=== PATIENT | male | born 1980 | race Caucasian/White ===

== ENCOUNTER 2019-09-21 14:33 | Outpatient (CLI) | payer OTHER, SELFPAY ==
--- NOTE | ~2019-09-21 | US_ITS ---
EXAMINATION: US right upper quadrant EXAM DATE: 09/21/2019 15:04 INDICATION: Right upper quadrant pain. Maurer's sign. TECHNIQUE: Multiple grayscale and Doppler images of the abdomen right upper quadrant were obtained (b y a technologist who performed the scan) and subsequently reviewed. There is no prior study for lazaro hanley. FINDINGS: The pancreatic head and body are normal in appearance. The pancreatic tail is not visualized. The l iver has normal echogenicity and contour. There is a 1 cm cyst anteriorly. There is no evidence of intrahepatic biliary duct dilation. Portal venous flow was seen in the hepatopedal, normal direction and has normal Doppler waveform. No right-sided hydronephrosis. Common bile duct measures 4 mm, which is normal. The gallbladder wall is normal in thickness, with ex pected amount of distention. No sonographic evidence of pericholecystic fluid. There is no cholelit hiases. Technologist performing exam reports patient did not demonstrate sonographic Maurer's sign. Please note that this sign is less reliable in patients who have received pain medication. IMPRESSION: Unremarkable abdominal ultrasound exam. Reviewed, dictated and finalized at location B. O NETWORK ENGINEER
[2019-09-21 15:42] LABS: Basophils Percent Auto 0.4 % (0.2-1.2); Eosinophils Absolute Auto 0.1 K/mm3 (0-0.3); Eosinophils Percent Auto 1.3 % (0-4.4); Hematocrit 46.4 % (42.0-52.0); Hemoglobin 15.6 g/dL (14.0-18.0); Immature Granulocyte Absolute 0.02 K/mm3 (0.00-0.031); Immature Granulocyte Percent A 0.2 % (0-0.5); Lymphocytes Absolute Auto 2.15 K/mm3 (0.9-3.2); Lymphocytes Percent Auto 25.1 % (18.3-44.2); Mean Corpuscular HGB Conc 33.6 g/dl (32-36); Mean Corpuscular Hemoglobin 29.4 pg (26-34); Mean Corpuscular Volume 87.4 fl (80-100); Mean Platelet Volume 10.3 fl (7.4-10.4); Monocytes Absolute Auto 0.7 K/mm3 (0.1-0.6); Monocytes Percent Auto 8.2 % (2.6-8.5); Neutrophils Absolute Auto 5.6 K/mm3 (1.3-6.7); Neutrophils Percent Auto 64.8 % (45.5-73.1); Platelet Count Result 273 k/mm3 (150-375); Red Blood Count 5.31 M/mm3 (4.6-6.20); Red Cell Distribution Width 12.9 % (11.5-14.5); White Blood Count 8.6 K/mm3 (4.5-10.0)
[2019-09-21 15:52] LABS: Alanine Aminotransferase 27 U/L (4-50); Albumin Level 4.2 g/dL (3.5-5.1); Alkaline Phosphatase 61 U/L (38-126); Amylase 42 U/L (30-110); Aspartate Amino Transferase 24 U/L (17-59); Bilirubin,Total 0.8 mg/dL (0.2-1.3); Blood Urea Nitrogen 11 mg/dL (9-20); Carbon Dioxide 25 mmol/L (22-30); Chloride 100 mmol/L (98-107); Estimated Glomerular Filt Rate > 60; Glucose 85 mg/dL (75-110); Lipase 90 U/L (23-300); Potassium 4.4 mmol/L (3.4-5.0); Sodium 135 mmol/L (137-145)
== END 2019-09-21 14:34 | disposition home or self-care (01) ==
PROVIDERS: PCP Family Medicine; Visit Provider Physician Assistant
DX: R10.11 Right upper quadrant pain (principal)
CPT/HCPCS: 36415; 76705; 80053; 82150; 83690; 85025

== ENCOUNTER 2019-09-25 14:50 | Outpatient (CLI) | payer OTHER, SELFPAY ==
--- NOTE | ~2019-09-25 | NM_ITS ---
EXAMINATION: NM hepatobiliary w pharm DATE: 09/25/2019 17:52 INDICATION: Right upper quadrant abdominal pain COMPARISON: Right upper quadrant ultrasound dated 09/21/2019 TECHNIQUE: 4.5 mCi Tc-99m mebrofenin (Choletec) was administered intravenously. Scintigraphic images of the abdomen were obtained for one hour. 3 mcg sincalide (Kinevac) was administered by slow intrav enous infusion, and imaging was continued for 30 minutes. Gallbladder ejection fraction was calculate d by the technologist. FINDINGS: There is normal clearance of radiotracer from the blood pool. There is homogeneous tracer uptake by t he liver. Activity progresses to the gallbladder and bowel. The gallbladder ejection fraction (GBEF) is 77% (normal 10-90%, but most patient with gallbladder dysfunction have GBEF < 35% which does over lap with the normal range). IMPRESSION: 1. Normal hepatobiliary scan. Reviewed, dictated and finalized at location A. ITE PROVIDER
== END 2019-09-25 14:51 | disposition home or self-care (01) ==
LOC: ANHIMG 14:57
PROVIDERS: PCP Family Medicine; Visit Provider Physician Assistant
DX: R10.11 Right upper quadrant pain (principal)
CPT/HCPCS: 78227; A9537; J2805

== ENCOUNTER 2019-12-14 07:46 | Emergency (ER) | payer OTHER, SELFPAY ==
--- NOTE | ~2019-12-14 | XR_ITS ---
EXAMINATION: XR lumbar spine min 4V DATE: 12/14/2019 08:11 INDICATION: Pain after fall TECHNIQUE: Anteroposterior, lateral, and bilateral oblique views of the lumbar spine, and cone-down l ateral view of the lumbosacral junction were obtained. COMPARISON: None. FINDINGS: There is no fracture, dislocation, or subluxation. The vertebral body heights, alignment, a nd intervertebral disc spaces are normal. The paravertebral soft tissues are unremarkable. IMPRESSION: 1. No acute osseous abnormality. Reviewed, dictated and finalized at location A.
[2019-12-14 07:50] VITALS: BP 154/81; PULSE 66; RESP 18; TEMP 36.7; O2SAT 100
--- NOTE | 2019-12-14 07:52 | ED.GENADULT ---
HPI - General Adult General Chief complaint: Fall Stated complaint: Low back pain Time Seen by Provider: 12/14/19 07:51 History of Present Illness HPI narrative: Patient is a 39-year-old male who presents ER with low back pain. Patient was at work 3 days ago wrapping a palate walking backwards when he tripped and fell backwards landing on his buttock and hand. He initially had left wrist pain which is persisted without swelling or numbness or tingling. But he has developed worsening low back pain since his fall. No lower extremity numbness or weakness, no saddle anesthesia, no difficulty with urination or defecation. Sx are worsened by persistent sitting. No alleviating factors. Related Data Home Medications Medication Instructions Recorded Confirmed amlodipine 12/14/19 famotidine 12/14/19 lisinopril 12/14/19 Allergies Allergy/AdvReac Type Severity Reaction Status Date / Time No Known Allergies Allergy Verified 12/14/19 08:00 Review of Systems Review of Systems: All systems reviewed & are unremarkable except as noted in HPI and below Constitutional: Constitutional: Denies chills, Denies fever(s) and Denies weakness Respiratory: Respiratory: Denies cough and Denies dyspnea Musculoskeletal: Musculoskeletal: Reports back pain and Denies muscle cramps Comments: Left wrist pain Neurologic: Denies syncope, Denies focal weakness and Denies numbness PMFSH Past Medical History Medical History (Updated 12/14/19 @ 08:55 by Logan Fallon MD) Essential hypertension GERD (gastroesophageal reflux disease) History of diverticulosis Obstructive sleep apnea on CPAP Surgical History Surgical History (Updated 12/14/19 @ 08:49 by Logan Fallon MD) H/O inguinal hernia repair Family History Family History (Updated 03/29/14 @ 09:38 by DOCTOR UNKNOWN) Father Acute myocardial infarction Social History Social History Smoking status: Never smoker Alcohol intake: never Gender identity (if verbalized by the patient): Male Exam Narrative: Exam Narrative: GENERAL: Well-appearing, well-nourished, and in no acute distress. HEAD: Normocephalic, atraumatic. ENT: Mucous membranes moist. CHEST: Clear to auscultation. No respiratory distress. HEART: Regular rate and rhythm. Normal peripheral pulses. EXTREMITIES: Focused exam left wrist shows no swelling or redness, full range of motion present, no point tenderness. Back: No midline tenderness of thoracic or lumbar spine. There is mild tenderness to the right SI region without evidence of bruising or abrasion. SKIN: Warm, dry, no rash. NEURO: Alert and oriented x3. Course Course Emergency Course: Minimal improvement with Toradol. Informed of results. Discharge home with supportive care. Vital Signs Vital signs: Vital Signs Temperature 98.1 F 12/14/19 07:50 Pulse Rate 66 12/14/19 07:50 Respiratory Rate 18 12/14/19 07:50 Blood Pressure 154/81 H 12/14/19 07:50 Pulse Oximetry 100 12/14/19 07:50 Temperature 98.1 F 12/14/19 07:50 Pulse Rate 66 12/14/19 07:50 Respiratory Rate 18 12/14/19 07:50 Blood Pressure 154/81 H 12/14/19 07:50 Pulse Oximetry 100 12/14/19 07:50 Medical Decision Making Vital Signs Vital Signs: Vital Signs Temperature 98.1 F 12/14/19 07:50 Pulse Rate 66 12/14/19 07:50 Respiratory Rate 18 12/14/19 07:50 Blood Pressure 154/81 H 12/14/19 07:50 Pulse Oximetry 100 12/14/19 07:50 Temperature 98.1 F 12/14/19 07:50 Pulse Rate 66 12/14/19 07:50 Respiratory Rate 18 12/14/19 07:50 Blood Pressure 154/81 H 12/14/19 07:50 Pulse Oximetry 100 12/14/19 07:50 Imaging Data Radiologist's impression: ITS Impressions Lumbar Spine X-Ray 12/14/19 08:19 IMPRESSION: 1. No acute osseous abnormality. Discharge Plan Discharge Clinical Impression: Acute low back pain Qualifiers: Back pain laterality: right Sciatica presence: without sciatica
[2019-12-14] MEDS: KETOROLAC (*BKC) 60 MG/2 ML VIAL IM (08:05)
== END 2019-12-14 09:05 | disposition home or self-care (01) ==
PROVIDERS: Emergency Provider Emergency Medicine; PCP Family Medicine
DX: M54.5 Low back pain (principal); I10 Essential (primary) hypertension; K21.9 Gastro-esophageal reflux disease without esophagitis; G47.33 Obstructive sleep apnea (adult) (pediatric)
CPT/HCPCS: 72110; 96372; 99283; J1885

== ENCOUNTER 2020-08-09 14:45 | Emergency (ER) | payer OTHER, SELFPAY ==
[2020-08-09 14:53] VITALS: BP 155/82; PULSE 78; RESP 20; TEMP 36.6; O2SAT 98
--- NOTE | 2020-08-09 15:30 | ED.ABDPAIN ---
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 Patient states he has 1/2-week history of left sided back pain that is mild, worse with motion [therefore not colicky], better at rest. No frequency/urgency/dysuria, abdominal pain, blood, fever-but a screening [infrared]temperature today was 100. He did have associated emesis x1 yesterday only; he has no stool changes [darker/founder and president], bowel changes. He has had a prior Covid test earlier in the month after Thanksgiving exposure and quarantine; no cough, S OB, wheezing, CP, loss of taste or smell. The patient had a prior CT scan [2018] showing diverticulitis, treated without surgery; he had a prior noncontributory ultrasound and biliary scan [2019] for pain from GERD. [id number] dip urinalysis is noncontributory except for trace hematuria. Discussed possible causes [urologic, gastrointestinal, mechanical back, etc.] and patient declines same day referral to hospital for further testing Related Data Allergies Allergy/AdvReac Type Severity Reaction Status Date / Time No Known Allergies Allergy Verified 08/09/20 15:12 Review of Systems Review of Systems: Narrative: General/Constitutional: No weight loss,fever Eyes: N0: Redness,discharge Ears/Nose/Throat: No: Epistaxis,ear discharge Respiratory: Denies: Hemoptysis Gastrointestinal: No Vomiting today?only yesterday, no Bleeding-rectal Skin: No Lumps, eruption Neurologic: No Focal Weakness,Sz Hematologic: Denies: Petechiae/Purpura Psychiatric: No: Suicida ideationl All Other Systems: Reviewed and Negative [facility] Past Medical History Medical History (Updated 08/10/20 @ 00:00 by Background Daemon) Essential hypertension GERD (gastroesophageal reflux disease) History of diverticulosis Obstructive sleep apnea on CPAP Surgical History Surgical History (Updated 12/14/19 @ 08:49 by Logan Fallon MD) H/O inguinal hernia repair Family History Family History (Updated 03/29/14 @ 09:38 by DOCTOR UNKNOWN) Father Acute myocardial infarction Social History Social History (Updated 08/05/20 @ 09:01 by Keerthi Mai) Smoking status: Never smoker Second hand tobacco smoke exposure: No Alcohol intake: never Substance use: never Substance use type: does not use Gender identity (if verbalized by the patient): Male Comments At time of signature, agree with nursing past medical, surgical, social and family history. There is no relevant family history pertinent to the presenting complaint Exam Narrative: Exam Narrative: General Appearance: Obese/well nourished, Conjunctiva clear Mouth/Throat: Normal appearing, Normal lips, Supple Respiratory: Airway patent, No respiratory distress Abdomen: Soft, mildly tender left flank and LLQ, No massess, No organomegaly,no rebound/ surgical signs), Musculoskeletal: Full ROM Skin: Warm, Dry Neurological: A&O x3, Normal affect Course Vital Signs Vital signs: Vital Signs Temperature 97.8 F 08/09/20 14:53 Pulse Rate 78 08/09/20 14:53 Respiratory Rate 20 08/09/20 14:53 Blood Pressure 155/82 H 08/09/20 14:53 Pulse Oximetry 98 08/09/20 14:53 Temperature 97.8 F 08/09/20 14:53 Pulse Rate 78 08/09/20 14:53 Respiratory Rate 20 08/09/20 14:53 Blood Pressure 155/82 H 08/09/20 14:53 Pulse Oximetry 98 08/09/20 14:53 MDM - Abdominal Pain Lab Data Labs: Lab Results 08/09/20 Range/Units 15:09 C.trachomatis RNA (TMA) Not detected (Not Detected) N.gonorrhoeae RNA (TMA) Not detected (Not Detected) T. vaginalis Amp RNA Pending Urine Glucose Negative Reference
== END 2020-08-09 15:44 | disposition home or self-care (01) ==
PROVIDERS: Emergency Provider Emergency Medicine; PCP Family Medicine
DX: R10.9 Unspecified abdominal pain (principal); I10 Essential (primary) hypertension; K21.9 Gastro-esophageal reflux disease without esophagitis; G47.33 Obstructive sleep apnea (adult) (pediatric)
CPT/HCPCS: 81003; 87086; 87491; 87591; 87661; 99213; G0463

== ENCOUNTER 2020-09-20 07:02 | Outpatient (NON) | payer OTHER, SELFPAY ==
[2020-09-20 19:17] LABS: SARS-CoV-2 RNA PCR Negative
== END 2020-09-20 07:03 ==
PROVIDERS: Family Provider Family Medicine; PCP Family Medicine; Visit Provider Physician Assistant
DX: R05 Cough (principal); Z20.822 Contact with and (suspected) exposure to COVID-19
CPT/HCPCS: C9803; U0003; U0005

== ENCOUNTER 2020-10-29 09:58 | Outpatient (CLI) | payer OTHER, SELFPAY ==
--- NOTE | ~2020-10-29 | XR_ITS ---
EXAMINATION: XR lumbar spine 2-3V EXAM DATE: 10/29/2020 10:19 INDICATION: M54.5 - Low back pain. Pt fell on his back at work x 1 year ago and is having throbbing l ow-back pain x 1 week with occasional spasms. No recent injury. No surgery. TECHNIQUE: Lumber spine frontal, lateral, lateral L5-S1 projections for interpretation. Comparison is made to prior examination from 12/13/2019. FINDINGS: The vertebral bodies are aligned in the AP dimension. Vertebral body and disc heights are well-maintained. There are no acute fractures identified. There is mild to moderate lumbar facet arth ropathy. Sacrum, sacroiliac joints, sacral arcuate lines are intact. Paraspinal soft tissue is unrema rkable. IMPRESSION: Mild to moderate lumbar facet arthropathy. Reviewed, dictated and finalized at location B. ACT LENS MOLDER
== END 2020-10-29 09:59 ==
PROVIDERS: PCP Family Medicine; Visit Provider Nurse Practitioner Family
DX: M47.816 Spondylosis without myelopathy or radiculopathy, lumbar region (principal)
CPT/HCPCS: 72100

== ENCOUNTER 2021-08-09 15:04 | Emergency (ER) | payer OTHER, SELFPAY ==
--- NOTE | 2021-08-09 15:08 | ED.CHESTPAIN ---
HPI - Chest Pain General Chief Complaint: Chest Pain Stated Complaint: chest pain Time Seen by Provider: 08/09/21 15:08 Source: patient, family (), RN notes reviewed and old records reviewed Mode of arrival: ambulatory Limitations: no limitations History of Present Illness HPI narrative: 41-year-old male presents to the [facility] with complaints of left-sided chest pain, heaviness that woke him up out of his sleep last night. Patient states the pain was 10 out of 10, took his acid reflux medication. Patient denies it helping. Denies being sweaty or shortness of breath denies nausea or vomiting. Describes it as a chest tightness or heaviness. Risk factors include morbid obesity, hypertension, dad at 45 years old of a massive heart attack. MD complaint: chest pain, chest heaviness and chest discomfort (Left-sided) Related Data Allergies Allergy/AdvReac Type Severity Reaction Status Date / Time No Known Allergies Allergy Verified 08/04/21 16:18 Review of Systems Review of Systems: All systems reviewed & are unremarkable except as noted in HPI and below Constitutional: Constitutional: Reports no additional constitutional complaints, Denies chills, Denies fatigue, Denies fever(s) and Denies weakness Eyes: Eyes: Reports no additional eye complaints ENT: Reports system reviewed and no additional complaints, except as documented Cardiovascular: Cardiovascular: Reports as per HPI, Reports chest pain, Reports chest pain at rest, Reports chest pain with activity, Reports radiating jaw, neck or arm pain and Denies dyspnea Respiratory: Respiratory: Reports no additional respiratory complaints, Denies chest congestion, Denies cough, Denies dyspnea and Denies wheezing Gastrointestinal: Gastrointestinal: Reports no additional gastrointestinal complaints, Denies abdominal pain, Denies nausea and Denies vomiting Musculoskeletal: Musculoskeletal: Reports no additional musculoskeletal complaints Integumentary/Breasts: Skin/Breast: Reports system reviewed and no additional complaints, except as docu Neurologic: Reports system reviewed and no additional complaints, except as documented Psychiatric: Psychiatric: Reports no additional psychiatric complaints Allergic/Immunologic: Allergic/Immunologic: Reports no additional allergic/immunologic complaints PMFSH Past Medical History Medical History Essential hypertension GERD (gastroesophageal reflux disease) History of diverticulosis Obstructive sleep apnea on CPAP Surgical History Surgical History H/O inguinal hernia repair Family History Family History (Updated 08/09/21 @ 15:27 by Katelin Arriaga) Father , Age 45 Acute myocardial infarction, Onset Age: 45 Social History Social History Smoking status: Never smoker Second hand tobacco smoke exposure: No Alcohol intake: never Substance use: never Substance use type: does not use Gender identity (if verbalized by the patient): Male Comments At the time of my signature, I reviewed and agree with the nursing past medical, surgical, social, and family history. There is no relevant family history pertinent to the patient complaint. Exam Const: General: healthy appearing, no acute distress and alert Nutritional Appearance: well nourished and obese morbidly obese Orientation/consciousness: patient oriented x3 Limitations: no limitations HENMT: Head: normal to inspection Ears: external ears normal Eyes: Conjunctivae: conjunctivae normal Pupils: Equal, round and reactive pupils present Neck: Neck: normal visual inspection, no lymphadenopathy and no meningeal signs Chest: Chest palpation & inspection: normal inspection of the chest Resp: Effort & Inspection: normal respiratory effort and no use of accessory muscles Auscultation: clear to ausculta
[2021-08-09] MEDS: ASPIRIN 81 MG CHEWABLE TABLET 324 MG PO (15:15)
[2021-08-09 15:34] VITALS: BP 149/72; PULSE 81; RESP 18; TEMP 36.6; O2SAT 98
== END 2021-08-09 15:27 | disposition short-term general hospital (02) ==
PROVIDERS: Emergency Provider Nurse Practitioner; PCP Family Medicine
DX: R07.89 Other chest pain (principal); I10 Essential (primary) hypertension; K21.9 Gastro-esophageal reflux disease without esophagitis; G47.33 Obstructive sleep apnea (adult) (pediatric); E66.01 Morbid (severe) obesity due to excess calories; Z68.42 Body mass index [BMI] 45.0-49.9, adult
CPT/HCPCS: 99215; A9270; G0463

== ENCOUNTER 2021-08-09 15:44 | Emergency (ER) | payer OTHER, SELFPAY ==
[2021-08-09] VITALS (7 sets, daily range): BP systolic 121–148; BP diastolic 55–69; PULSE 69–80; RESP 15–20; TEMP 36.2; O2SAT 95–100
--- NOTE | ~2021-08-09 | XR_ITS ---
EXAMINATION: XR chest 2V 08/09/2021 16:05 INDICATION: Sternal chest pain. PROCEDURE: 2 view chest COMPARISON: No prior studies for comparison. FINDINGS: The lungs are clear. The cardiomediastinal silhouette is within normal limits. There are no pleural effusions. There is no pneumothorax suspected. IMPRESSION: 1: NO ACUTE CARDIOPULMONARY DISEASE. Reviewed, dictated and finalized at location A. ET RUNNER
--- NOTE | 2021-08-09 15:17 | ECG_ITS ---
Measurements Intervals [place] Rate: 83 P: 33 VA: 146 QRS: 31 QRSD: 90 T: 33 QT: 346 QTc: 408 Interpretive Statements SINUS RHYTHM BASELINE ARTIFACT- I, II, III, AVR, AVL, AVF, V1-V2, V4-V6 NORMAL ECG Electronically Signed On 08-12-2021 8:31:19 [employer] by Randy Jansen D.O.
--- NOTE | 2021-08-09 15:47 | ECG_ITS ---
Measurements Intervals [place] Rate: 78 P: 19 [place]: 149 QRS: 12 QRSD: 100 T: 31 QT: 361 QTc: 414 Interpretive Statements SINUS RHYTHM NORMAL ECG Electronically Signed On 08-09-2021 17:07:25 TECHNICAL SPECIALIST CYTOLOGY by Randy Jansen D.O.
[2021-08-09 16:05] LABS: Basophils Percent Auto 0.3 % (0.2-1.2); Eosinophils Absolute Auto 0.2 K/mm3 (0-0.3); Eosinophils Percent Auto 1.5 % (0-4.4); Hematocrit 45.3 % (42.0-52.0); Hemoglobin 14.8 g/dL (14.0-18.0); Immature Granulocyte Absolute 0.03 K/mm3 (0.00-0.031); Immature Granulocyte Percent A 0.3 % (0-0.5); Lymphocytes Absolute Auto 2.37 K/mm3 (0.9-3.2); Mean Corpuscular HGB Conc 32.7 g/dl (32-36); Mean Corpuscular Hemoglobin 28.6 pg (26-34); Mean Corpuscular Volume 87.6 fl (80-100); Mean Platelet Volume 10.4 fl (7.4-10.4); Neutrophils Absolute Auto 7.2 K/mm3 (1.3-6.7); Neutrophils Percent Auto 66.9 % (45.5-73.1); Platelet Count Result 237 k/mm3 (150-375); Red Blood Count 5.17 M/mm3 (4.6-6.20); Red Cell Distribution Width 13.4 % (11.5-14.5); White Blood Count 10.8 K/mm3 (4.5-10.0)
[2021-08-09 16:14] LABS: Alanine Aminotransferase 28 U/L (4-50); Alkaline Phosphatase 56 U/L (38-126); Anion Gap 5 mmol/L (8-16); Aspartate Amino Transferase 25 U/L (17-59); Bilirubin,Total 0.5 mg/dL (0.2-1.3); Blood Urea Nitrogen 12 mg/dL (9-20); Calcium 8.6 mg/dL (8.4-10.2); Carbon Dioxide 25 mmol/L (22-30); Chloride 103 mmol/L (98-107); Estimated CRCL calculation 121 ml/min; Estimated Glomerular Filt Rate > 60; Glucose 104 mg/dL (65-110); INR 0.9; Lipase 128 U/L (23-300); Potassium 4.2 mmol/L (3.4-5.0); Prothrombin Time 11.7 Seconds (11.1-14.7); Sodium 133 mmol/L (137-145)
[2021-08-09 16:15] LABS: Partial Thromboplastin Time 24.8 SECONDS (22.3-36.8)
[2021-08-09 16:27] LABS: Troponin I < 0.012 ng/mL (0.000-0.034)
[2021-08-09 19:54] LABS: Troponin I < 0.012 ng/mL (0.000-0.034)
[2021-08-09] MEDS: BELLADONNA ALK/PHENOB ELIX 10 ML, MAG HYDROX/ALUMINUM HYD/SIMETH 30 ML, LIDOCAINE HCL 2... PO (20:14)
--- NOTE | 2021-08-09 20:44 | ED.GENADULT ---
HPI - General Adult General Chief complaint: Chest Pain Stated complaint: Chest Pain Time Seen by Provider: 08/09/21 19:52 History of Present Illness HPI narrative: Patient is a 41-year-old gentleman who presents the emergency department with chief complaint of chest discomfort. Patient reports he has history of reflux and has history of hypertension. The patient states last night he had an episode where he had a burning sensation in the back of his throat and reports he had some fullness and tightness in his chest that has been subsequently become sharp. Patient reports no diarrhea denies abdominal pain or epigastric pain. Related Data Allergies Allergy/AdvReac Type Severity Reaction Status Date / Time No Known Allergies Allergy Verified 08/09/21 20:05 Review of Systems Review of Systems: A 10 system review of systems was completed on the patient and is negative except for what is stated in the HPI. Nursing and ancillary documentation was reviewed. [facility] Past Medical History Medical History Essential hypertension GERD (gastroesophageal reflux disease) History of diverticulosis Obstructive sleep apnea on CPAP Surgical History Surgical History H/O inguinal hernia repair Family History Family History Father , Age 45 Acute myocardial infarction, Onset Age: 45 Social History Social History Smoking status: Never smoker Second hand tobacco smoke exposure: No Alcohol intake: never Substance use: never Substance use type: does not use Gender identity (if verbalized by the patient): Male Exam Narrative: GENERAL: Well-appearing, well-nourished, and in no acute distress. HEAD: Normocephalic, atraumatic. EYES: PERRLA and EOMI. ENT: Nares clear, no rhinorrhea or epistaxis. Mucous membranes moist. NECK: Supple. CHEST: Clear to auscultation. No respiratory distress. HEART: Regular rate and rhythm. No murmur heard. Normal peripheral pulses. ABDOMEN: Soft, nontender, nondistended, normal active bowel sounds. EXTREMITIES: Normal range of motion. No edema. SKIN: Warm, dry, no rash. NEURO: No focal deficits. Alert and oriented x3. PSYCH: Normal mood and affect. Course Course Emergency Course: EKG is sinus rhythm rate of [address] elevation or ST depression Vital Signs Vital signs: Vital Signs Temperature 36.2 C L 08/09/21 15:48 Pulse Rate 80 08/09/21 15:48 Respiratory Rate 18 08/09/21 15:48 Blood Pressure 148/69 H 08/09/21 15:48 Pulse Oximetry 97 08/09/21 15:48 Temperature 36.2 C L 08/09/21 15:48 Pulse Rate 75 08/09/21 19:56 Respiratory Rate 17 08/09/21 19:56 Blood Pressure 130/55 L 08/09/21 19:56 Pulse Oximetry 99 08/09/21 20:05 Medical Decision Making Vital Signs Vital Signs: Vital Signs Temperature 36.2 C L 08/09/21 15:48 Pulse Rate 80 08/09/21 15:48 Respiratory Rate 18 08/09/21 15:48 Blood Pressure 148/69 H 08/09/21 15:48 Pulse Oximetry 97 08/09/21 15:48 Temperature 36.2 C L 08/09/21 15:48 Pulse Rate 75 08/09/21 19:56 Respiratory Rate 17 08/09/21 19:56 Blood Pressure 130/55 L 08/09/21 19:56 Pulse Oximetry 99 08/09/21 20:05 Lab Data Result diagrams: 08/09/21 15:58 08/09/21 15:58 Labs: Lab Results 08/09/21 08/09/21 08/09/21 Range/Units 15:58 15:58 15:58 WBC 10.8 H (4.5-10.0) K/mm3 RBC 5.17 (4.6-6.20) M/mm3 Hgb 14.8 (14.0-18.0) g/dL Hct 45.3 (42.0-52.0) % MCV 87.6 (80-100) fl MCH 28.6 (26-34) pg MCHC 32.7 (32-36) g/dl RDW 13.4 (11.5-14.5) % Plt Count 237 (150-375) k/mm3 MPV 10.4 (7.4-10.4) fl Immature Gran % (Auto) 0.3 (0-0.5) % Neut % (Auto) 66.9 (45.5-73.1) % Lymph
== END 2021-08-09 21:12 | disposition home or self-care (01) ==
PROVIDERS: Emergency Medicine; Emergency Provider Emergency Medicine; PCP Family Medicine
DX: K21.9 Gastro-esophageal reflux disease without esophagitis (principal); R07.89 Other chest pain
CPT/HCPCS: 36415; 71046; 80053; 83690; 84484; 85025; 85610; 85730; 93005; 99284; A9270

== ENCOUNTER 2021-08-27 09:09 | Emergency (ER) | payer OTHER, SELFPAY ==
[2021-08-27 09:21] VITALS: BP 148/85; PULSE 90; RESP 16; TEMP 36.1; O2SAT 97
[2021-08-27 11:11] VITALS: BP 127/78; PULSE 90; RESP 18; TEMP 37.7; O2SAT 98
[2021-08-27] MEDS: ONDANSETRON HCL ODT 4 MG TABLET PO (11:18)
--- NOTE | 2021-08-27 12:07 | PC.NURSE ---
Pt able to tolerate 4 crackers and water after zofran.
[2021-08-27 13:05] VITALS: BP 111/71; PULSE 85; RESP 15; TEMP 37.4; O2SAT 95
--- NOTE | 2021-08-27 13:42 | ED.GENADULT ---
HPI - General Adult General Chief complaint: Upper Respiratory Infection Stated complaint: tired/vomiting/cough Time Seen by Provider: 08/27/21 10:28 Source: patient Mode of arrival: ambulatory Limitations: no limitations History of Present Illness HPI narrative: Patient is a 41-year-old male presenting with chief complaint of cough, congestion, headache, nausea and 2 episodes of vomiting over the past 48 hours. Patient denies any abdominal pain or tenderness. Patient reports that the nausea has made it hard for him to tolerate food. Patient reports that he is vaccinated. Patient denies chest pain or shortness of breath. Related Data Allergies Allergy/AdvReac Type Severity Reaction Status Date / Time No Known Allergies Allergy Verified 08/27/21 11:16 Review of Systems Review of Systems: CONSTITUTIONAL: Reports body aches, fatigue denies fever, chills, or sweats. EYES: Denies visual changes, redness, or discharge. ENT: Reports Rhinorrhea, congestion, denies sore throat, or otalgia. CARDIOVASCULAR: Denies chest pain, palpitations, or edema. RESPIRATORY: Denies cough or dyspnea. GASTROINTESTINAL: Reports nausea and vomiting x2 denies abdominal pain or diarrhea. GENITOURINARY: Denies dysuria or hematuria. SKIN: Denies rash or itching. MUSCULOSKELETAL: Denies back pain, joint pain, or myalgia. NEUROLOGIC: Reports headache, denies numbness, dizziness, or weakness. PSYCHIATRIC: Denies anxiety or depression. PMFSH Past Medical History Medical History Essential hypertension GERD (gastroesophageal reflux disease) History of diverticulosis Obstructive sleep apnea on CPAP Surgical History Surgical History H/O inguinal hernia repair Family History Family History Father , Age 45 Acute myocardial infarction, Onset Age: 45 Social History Social History Smoking status: Never smoker Second hand tobacco smoke exposure: No Alcohol intake: never Substance use: never Substance use type: does not use Gender identity (if verbalized by the patient): Male Exam Narrative: GENERAL: Well-appearing, well-nourished, and in no acute distress. HEAD: Normocephalic, atraumatic. EYES: PERRLA and EOMI. CHEST: Clear to auscultation. No respiratory distress. No wheezes rales or rhonchi HEART: Regular rate and rhythm. ABDOMEN: Soft, nontender, nondistended, normal active bowel sounds. No active vomiting EXTREMITIES: Normal range of motion. No edema. SKIN: Warm, dry, no rash. NEURO: No focal deficits. Alert and oriented x3. PSYCH: Normal mood and affect. Course Vital Signs Vital signs: Vital Signs Temperature 97.0 F L 08/27/21 09:21 Pulse Rate 90 08/27/21 09:21 Respiratory Rate 16 08/27/21 09:21 Blood Pressure 148/85 H 08/27/21 09:21 Pulse Oximetry 97 08/27/21 09:21 Temperature 100 F H 08/27/21 11:11 Pulse Rate 90 08/27/21 11:11 Respiratory Rate 18 08/27/21 11:11 Blood Pressure 127/78 08/27/21 11:11 Pulse Oximetry 98 08/27/21 11:11 Medical Decision Making MDM Narrative Medical decision making narrative: Patient was given [facility] emergency department. Patient has no abdominal tenderness or abdominal pain. Patient agreeable to episode of vomiting in the last 48 hours. Patient does not appear dehydrated. Patient has tolerated p.o. challenge without vomiting. Patient vitals are stable. Patient not hypoxic or toxic. Patient tested for Covid and given quarantine instructions and return ER instructions. Vital Signs Vital Signs: Vital Signs Temperature 97.0 F L 08/27/21 09:21 Pulse Rate 90 08/27/21 09:21 Respiratory Rate 16 08/27/21 09:21 Blood Pressure 148/85 H 08/27/21 09:21 Pulse Oximetry 97 08/27/21 09:21 Tem
[2021-08-27 20:50] LABS: SARS-CoV-2 RNA PCR Positive
== END 2021-08-27 13:05 | disposition home or self-care (01) ==
PROVIDERS: Physician Assistant; Emergency Provider Emergency Medicine; PCP Family Medicine
DX: U07.1 COVID-19 (principal); R11.2 Nausea with vomiting, unspecified; I10 Essential (primary) hypertension; K21.9 Gastro-esophageal reflux disease without esophagitis; G47.30 Sleep apnea, unspecified
CPT/HCPCS: 99283; A9270; C9803; U0003; U0005

== ENCOUNTER 2021-08-28 06:37 | Inpatient (IN) | payer OTHER, SELFPAY ==
[2021-08-28] VITALS (23 sets, daily range): BP systolic 113–145; BP diastolic 57–113; PULSE 66–95; RESP 16–22; TEMP 36.6–37.9; O2SAT 90–97; BMI 44.4
--- NOTE | ~2021-08-28 | XR_ITS ---
EXAMINATION: XR chest 1V portable DATE: 08/28/2021 10:43 INDICATION: Fever. Cough. COVID-19 pneumonia. TECHNIQUE: A single frontal view of the chest was obtained. COMPARISON: Chest 2 views 08/09/2021, CT abdomen and pelvis 01/23/2018 FINDINGS: There are airspace opacities in the lower lung zones. No pleural effusion or pneumothorax. The heart size is normal. IMPRESSION: 1. Airspace opacities in the lower lung zones, consistent with atelectasis versus pneumonia. Reviewed, dictated and finalized at location A. RATIONS SEWER IMPRESSION: 1. Airspace opacities in the lower lung zones, consistent with atelectasis vers us pneumonia.
[2021-08-28] MEDS: ACETAMINOPHEN 500 MG TABLET 1000 MG PO (09:47)
--- NOTE | 2021-08-28 10:27 | ED.URI ---
HPI - URI/Sore Throat General Chief Complaint: Upper Respiratory Infection Stated Complaint: sore throat, cough, covid + Time Seen by Provider: 08/28/21 09:32 Source: patient Mode of arrival: ambulatory Limitations: no limitations History of Present Illness HPI Narrative: This is a 41 year old male that presents to the ER for cold symptoms present over the last 3 days. Reports fever, headache, cough, sore throat, nausea and vomiting. He was seen in the ED for symptoms yesterday and COVID swab done. Reports he was awaiting results. It does appear patient is COVID positive. He is vaccinated, but did not receive a booster yet. Denies chest pain or shortness of breath. Related Data Allergies Allergy/AdvReac Type Severity Reaction Status Date / Time No Known Allergies Allergy Verified 08/27/21 11:16 Review of Systems Review of Systems: CONSTITUTIONAL: Reports fever ENT: Reports rhinorrhea, congestion, sore throat CARDIOVASCULAR: Denies chest pain, or edema. RESPIRATORY: Reports cough. Denies dyspnea. GASTROINTESTINAL: Reports nausea, vomiting MUSCULOSKELETAL: Reports myalgias. NEUROLOGIC: Reports headache. Denies numbness, or weakness. All systems reviewed & are unremarkable except as noted in HPI and below PMFSH Past Medical History Medical History Essential hypertension GERD (gastroesophageal reflux disease) History of diverticulosis Obstructive sleep apnea on CPAP Surgical History Surgical History H/O inguinal hernia repair Family History Family History Father , Age 45 Acute myocardial infarction, Onset Age: 45 Social History Social History Smoking status: Never smoker Second hand tobacco smoke exposure: No Alcohol intake: never Substance use: never Substance use type: does not use Gender identity (if verbalized by the patient): Male Exam Narrative: GENERAL: Well-appearing, well-nourished, and in no acute distress. HEAD: Normocephalic, atraumatic. EYES: EOMI. ENT: Nares clear, no rhinorrhea or epistaxis. Mucous membranes moist. Oropharynx with mild erythema, without tonsillar hypertrophy, exudate or other lesions. Bilateral TMs pearly matthew non-bulging NECK: Supple. No adenopathy or masses. CHEST: Clear to auscultation. No respiratory distress. No wheezes rales or rhonchi HEART: Regular rate and rhythm. No murmur heard. Normal peripheral pulses. EXTREMITIES: Normal range of motion. No edema. SKIN: Warm, dry, no rash. NEURO: No focal deficits. Alert and oriented x3. PSYCH: Normal mood and affect Course Consultations Consultation #1: Spoke with Dr. Garcia about patient and workup who accepts admission Date: 08/28/21 Time: 12:00 Vital Signs Vital signs: Vital Signs Temperature 100.3 F H 08/28/21 06:58 Pulse Rate 95 08/28/21 06:58 Respiratory Rate 16 08/28/21 06:58 Blood Pressure 145/79 H 08/28/21 06:58 Pulse Oximetry 95 08/28/21 06:58 Temperature 100.3 F H 08/28/21 07:34 Pulse Rate 79 08/28/21 09:50 Respiratory Rate 18 08/28/21 09:50 Blood Pressure 128/75 08/28/21 12:01 Pulse Oximetry 93 08/28/21 12:01 MDM - URI/Sore Throat MDM Narrative Medical decision making narrative: Patient presents to the emergency department for cold symptoms present over the last 3 days. Febrile upon arrival, given dose of antipyretic in the ED. Oxygen saturations remained borderline in the low 90s on room air. He did have a desat into the 80s as well. Placed on 2 L nasal cannula with improvement. CBC and metabolic panel without concerning findings. Chest x-ray shows airspace opacities in the lower lung zones. Patient is COVID-positive. Vaccinated, but no booster. He was updated on case findings. Started on remdesivir and
[2021-08-28 10:39] LABS: Alveolar/Arterial O2 Gradient 48.1 mmHg; Base Excess ABG -0.1 mEq/l (+/-2.0); Carboxyhemoglobin 0.5 % THb (0-2.0); Device ROOM AIR; Fractional Inspired Oxygen 21 %; HCO3 ABG 23.7 mEq/l (22.0-26.0); Methemoglobin ABG 0.3 %THb (0-1.5); Modified Allen's Test Pass; Oxygen Content ABG 19.2 %vol (16.0-22.0); Oxyhemoglobin 90.6 % THb (90.0-100.0); PCO2 ABG 36.6 mmHg (35.0-45.0); PO2 ABG 57.8 mmHg (80.0-100.0); PO2 FiO2 Ratio Arterial Blood 2.75 %; Reduced Hemoglobin 8.6 %THb (0-5.0); Site Drawn RIGHT RADIAL; Total Hemoglobin 15.1 g/dL (12.0-18.0)
[2021-08-28 11:17] LABS: Basophils Percent Auto 0.2 % (0.2-1.2); Eosinophils Percent Auto 0.1 % (0-4.4); Hemoglobin 14.8 g/dL (14.0-18.0); Immature Granulocyte Absolute 0.01 K/mm3 (0.00-0.031); Immature Granulocyte Percent A 0.1 % (0-0.5); Lymphocytes Percent Auto 18.6 % (18.3-44.2); Mean Corpuscular HGB Conc 32.9 g/dl (32-36); Mean Corpuscular Hemoglobin 28.4 pg (26-34); Mean Corpuscular Volume 86.4 fl (80-100); Mean Platelet Volume 10.5 fl (7.4-10.4); Monocytes Absolute Auto 1.2 K/mm3 (0.1-0.6); Monocytes Percent Auto 15.1 % (2.6-8.5); Neutrophils Absolute Auto 5.3 K/mm3 (1.3-6.7); Neutrophils Percent Auto 65.9 % (45.5-73.1); Platelet Count Result 204 k/mm3 (150-375); Red Blood Count 5.21 M/mm3 (4.6-6.20); Red Cell Distribution Width 13.3 % (11.5-14.5); White Blood Count 8.1 K/mm3 (4.5-10.0)
[2021-08-28 11:41] LABS: Alanine Aminotransferase 32 U/L (4-50); Albumin Level 3.9 g/dL (3.5-5.1); Alkaline Phosphatase 55 U/L (38-126); Anion Gap 10 mmol/L (8-16); Aspartate Amino Transferase 30 U/L (17-59); Bilirubin,Total 0.4 mg/dL (0.2-1.3); Blood Urea Nitrogen 8 mg/dL (9-20); CRP 1.1 mg/dL (<1.0); Calcium 8.3 mg/dL (8.4-10.2); Carbon Dioxide 23 mmol/L (22-30); Chloride 100 mmol/L (98-107); Estimated CRCL calculation 119 ml/min; Estimated Glomerular Filt Rate > 60; Glucose 109 mg/dL (65-110); Lactate Dehydrogenase 207 U/L (313-618); Sodium 133 mmol/L (137-145)
[2021-08-28] MEDS: DEXAMETHASONE SOD PHOS INJ 4 MG/ML VIAL 6 MG IV PUSH (12:22)
--- NOTE | 2021-08-28 13:20 | PM.IMHP ---
H&P: HPI History of Present Illness Date/Time: 08/28/21 13:20 Chief Complaint: Sore throat. Narrative: This is a 41-year-old male with hypertension, GERD, and sleep apnea who presented to the emergency department earlier today from home for evaluation of sore throat. He has not felt well since Wednesday with several symptoms to include subjective fever, chills, headache, cough productive of clear phlegm, nausea, and vomiting. He was seen in the emergency department for his symptoms yesterday at which time he tested positive for COVID by PCR. He has since developed a sore throat and he is having difficulties swallowing secondary to the same. Vital signs were stable on arrival aside from a low-grade fever. Chest x-ray shows bilateral a space disease which was read as atelectasis versus pneumonia. An ABG did demonstrate hypoxemia with a PO2 of 57.8 and he is being admitted in this setting. At the time my evaluation he feels okay and is on 2 L nasal cannula. He has not had any episodes of emesis today. He also denies chest pain, pleuritic pain, shortness of breath, vomiting, and diarrhea. He was vaccinated against COVID in October 2020 though he has not yet had his booster. Review of Systems Review of Systems: Twelve systems were reviewed and are negative except for as per HPI. [facility] Past Medical History Medical History (Updated 08/28/21 @ 13:43 by Shantel Rivas PA-C) Anxiety Congenital stenosis of lumbar spine Essential hypertension Gastroesophageal reflux disease History of diverticulitis Migraine headache Obstructive sleep apnea on CPAP Surgical History Surgical History (Updated 08/28/21 @ 13:35 by Shantel Rivas PA-C) History of right inguinal hernia repair Family History Family History (Updated 08/28/21 @ 13:36 by Shantel Rivas PA-C) Father , Age 45 Acute myocardial infarction, Onset Age: 45 Other Diabetes mellitus Social History Social History (Updated 08/28/21 @ 15:55 by Shantel Rivas PA-C) Social History: Surrogate decision maker: Hali Lee, spouse. Code status: Full code. Smoking status: Never smoker Alcohol intake: never Substance use: never Substance use type: does not use Additional living arrangements comments: The patient lives with his and their 2 [facility] in [place]. 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 Meds Home Medications and Allergies Home Medications Medication Instructions Recorded Confirmed Type amlodipine 10 mg tablet 10 mg PO DAILY #90 tablet 07/04/21 07/24/21 Rx lisinopril 40 mg tablet 40 mg PO DAILY #30 tablet 07/04/21 07/24/21 Rx cyclobenzaprine 5 mg tablet 5 mg PO DAILY PRN #30 tablet 07/24/21 07/24/21 Rx omeprazole 20 mg capsule,delayed 20 mg PO DAILY #30 cap 08/04/21 08/04/21 Rx release sucralfate [Carafate] 1 g PO QID 10 Days #40 tablet 08/09/21 Rx ondansetron 4 mg PO Q6H PRN #20 tablet 08/27/21 Rx Allergies Allergy/AdvReac Type Severity Reaction Status Date / Time No Known Allergies Allergy Verified 08/27/21 11:16 Vital Signs Vital Signs - 24 hr 08/28/21 06:58 08/28/21 07:34 08/28/21 09:20 Temperature 100.3 F H 100.3 F H Pulse Rate 95 95 Respiratory Rate 16 18 Blood Pressure 145/79 H 145/79 H 136/75 Pulse Oximetry 95 95 95 08/28/21 09:50 08/28/21 10:01 08/28/21 10:16 Temperature Pulse Rate 79 Respiratory Rate 18 Blood Pressure 124/75 113/71 130/76 Pulse Oximetry 93 92 94 08/28/21 11:40 08/28/21 12:01 Temperature Pulse Rate Respiratory Rate Blood Pressure 128/75 Pulse Oximetry 95 93 Exam Narrative: General: Well-developed male sitting up in bed in no distress. Weight: 151.9 kg. BMI: 44.2. HEENT: Wearing glasses. PERRL, EOMI. Sclerae anicteric. Tacky mucous membranes. Oropharynx is mildly erythematous. No exudate. Neck: Supple. No adenopathy. Respiratory: Respirations are even and nonlabored. He is speaking in full s
[2021-08-28 14:04] LABS: Prothrombin Time 13.1 Seconds (11.1-14.7)
[2021-08-28] MEDS: REMDESIVIR 200 MG/NS 250 ML 200 MG/250 ML BAG 250 MG IVPB (14:50)
--- NOTE | 2021-08-28 17:53 | PC.NURSE ---
This patient, Buster Lee, was admitted to 3 [facility] Room 301-01. Patient/family oriented to hospital policies and general routines including ID bracelet, bed and alarms, visiting hours, pain management, procedures, bathroom and other care routines, personal items, smoking policy, room service/diet, and visiting hours. Report received from Mercedes MATTA Information on how to activate the Rapid Response Team has been discussed. Patient/Family are encouraged to report perceived risks to care and to ask questions if they do not understand what they are told or what they should do.
[2021-08-28 19:29] LABS: Influenza Control Positive
[2021-08-29] VITALS (7 sets, daily range): BP systolic 102–131; BP diastolic 49–74; PULSE 64–70; RESP 14–20; TEMP 36.6–36.9; O2SAT 92–96
[2021-08-29 06:56] LABS: Hematocrit 42.1 % (42.0-52.0); Hemoglobin 14.3 g/dL (14.0-18.0); Mean Corpuscular Hemoglobin 28.7 pg (26-34); Mean Corpuscular Volume 84.5 fl (80-100); Platelet Count Result 207 k/mm3 (150-375); Red Blood Count 4.98 M/mm3 (4.6-6.20); Red Cell Distribution Width 12.8 % (11.5-14.5); White Blood Count 4.3 K/mm3 (4.5-10.0)
[2021-08-29 07:07] LABS: Prothrombin Time 13.1 Seconds (11.1-14.7)
[2021-08-29 07:09] LABS: Alanine Aminotransferase 27 U/L (4-50); Albumin Level 3.7 g/dL (3.5-5.1); Alkaline Phosphatase 50 U/L (38-126); Anion Gap 8 mmol/L (8-16); Aspartate Amino Transferase 23 U/L (17-59); Bilirubin,Total 0.4 mg/dL (0.2-1.3); Blood Urea Nitrogen 13 mg/dL (9-20); Calcium 8.5 mg/dL (8.4-10.2); Carbon Dioxide 24 mmol/L (22-30); Chloride 102 mmol/L (98-107); Estimated CRCL calculation 145 ml/min; Estimated Glomerular Filt Rate > 60; Glucose 121 mg/dL (65-110); Magnesium 2.3 mg/dL (1.6-2.3); Potassium 4.2 mmol/L (3.4-5.0); Sodium 134 mmol/L (137-145)
--- NOTE | 2021-08-29 09:22 | WPDPN ---
Progress Note: A&P Assessment and Plan (1) Pneumonia due to COVID-19 virus: Code(s): U07.1 - COVID-19; J12.82 - Pneumonia due to coronavirus disease 2018 Status: Acute Assessment and Plan: Continue dexamethasone and remdesivir day 2 Continue supplementary oxygen, Tessalon Perles and guaifenesin Patient will need home O2 eval before discharge (2) Hypoxemia: Code(s): R09.02 - Hypoxemia Status: Acute Assessment and Plan: Secondary to COVID PNA Continue supplementary oxygen D-dimer within normal limits (3) Obstructive sleep apnea on CPAP: Code(s): G47.33 - Obstructive sleep apnea (adult) (pediatric); Z99.89 - Dependence on other enabling machines and devices Status: Chronic Assessment and Plan: Continue CPAP (4) Essential hypertension: Code(s): I10 - Essential (primary) hypertension Status: Chronic Assessment and Plan: Stable Continue amlodipine 10 mg daily and lisinopril 40 mg daily vital signs as ordered Will adjust medication as needed Subjective Date/time seen: 08/29/21 09:22 patient notes that he continues to have uncontrollable coughing he also notes that he become short of breath when he ambulates to the restroom. Patient concerned about his due to her history of asthma and being exposed to his COVID. Patient denies cp,, palpitation, diarrhea, constipation, lightheadness, headache, dizziness or chills and fevers. Review of Systems Review of Systems: A 14 organ system Review of Systems was performed and pertinent positives included in the HPI, otherwise Exam Narrative: GENERAL: This is a well-nourished, well-developed patient, in no apparent distress. HEAD: normocephalic, atraumatic. EYES: PERRL. Sclera clear/white. Vision is grossly intact. EARS: External ears normal, auditory canals clear and without drainage, TMs normal without perforation. Hearing grossly intact. NOSE: External nose normal with no obvious nasal discharge, nares without redness, no rhinorrhea. THROAT: Mucous membranes moist, posterior pharynx clear. NECK: Neck supple, non-tender without lymphadenopathy, masses or thyromegaly. CARDIOVASCULAR: Regular rate and rhythm without murmurs, gallops, or rubs. RESPIRATORY: Clear to auscultation. Breath sounds equal bilaterally. No wheezes, rales, or rhonchi. GASTROINTESTINAL: Abdomen soft, non-tender, nondistended. Bowel sounds are active. No hepato-splenomegaly, or palpable masses. No guarding. SKIN: warm, intact with no suspicious lesions or rash, good texture and turgor. NEURO: awake, alert, and oriented to person, place and time. There were no obvious focal neurologic abnormalities. Steady gait EXTREMITIES: Normal range of motion. No edema. No calf tenderness. Negative Homans sign bilaterally. BACK: Nontender without deformity or crepitance. No flank tenderness. Objective Data Vital Signs Vital Signs: Vital Signs - 24 hr 08/28/21 09:50 08/28/21 10:01 08/28/21 10:16 Temperature Pulse Rate 79 Respiratory Rate 18 Blood Pressure 124/75 113/71 130/76 Pulse Oximetry 93 92 94 08/28/21 11:40 08/28/21 12:01 08/28/21 12:31 Temperature Pulse Rate 72 Respiratory Rate 20 Blood Pressure 128/75 121/72 Pulse Oximetry 95 93 96 08/28/21 12:46 08/28/21 13:01 08/28/21 13:16 Temperature Pulse Rate 78 93 Respiratory Rate 18 20 Blood Pressure 121/64 121/75 130/70 Pulse Oximetry 96 95 95 08/28/21 13:46 08/28/21 14:32 08/28/21 14:46 Temperature Pulse Rate 76 81 Respiratory Rate 18 22 H Blood Pressure 131/66 133/113 H 130/65 Pulse Oximetry 94 90 95 08/28/21 15:01 08/28/21 15:16 08/28/21 15:31 Temperature Pulse Rate 87 Respiratory Rate 18 Blood Pressure 130/71 130/73 129/67 Pulse Oximetry 96 95 95 08/28/21 16:01 08/28/21 17:01 08/28/21 17:50 Temperature Pulse Rate 85 82 Respiratory Rate 18 18 Blood Pressure 129/70 128/57 L Pulse Oxime
[2021-08-29 09:48] LABS: D Dimer 0.27 ug/mL (<0.48)
[2021-08-29] MEDS: PANTOPRAZOLE 40 MG TABLET PO (10:09)
[2021-08-29] MEDS: lisinopriL 20 MG TABLET 40 MG PO (10:09)
[2021-08-29] MEDS: ENOXAPARIN 40 MG/0.4 ML SYRINGE SUB-Q (10:10)
[2021-08-29] MEDS: amLODIPine BESYLATE 5 MG TABLET 10 MG PO (10:10)
[2021-08-29] MEDS: REMDESIVIR 100 MG/NS 250 ML 100 MG/250 ML BAG 250 MG IVPB (10:59)
[2021-08-29] MEDS: BENZONATATE 100 MG CAPSULE 200 MG PO (17:35)
[2021-08-29] MEDS: guaiFENesin 12 HR 600 MG TABCR 1200 MG PO (20:07)
[2021-08-29] MEDS: traZODone HCL 50 MG TABLET 100 MG PO (20:07)
[2021-08-30] VITALS: BP 103/52; PULSE 54; RESP 18; TEMP 36.6; O2SAT 94
[2021-08-30 04:00] VITALS: BP 102/57; PULSE 58; RESP 18; TEMP 36.8; O2SAT 96
[2021-08-30 07:12] LABS: Hemoglobin 14.7 g/dL (14.0-18.0); Mean Corpuscular HGB Conc 33.4 g/dl (32-36); Mean Corpuscular Hemoglobin 28.7 pg (26-34); Mean Corpuscular Volume 85.8 fl (80-100); Mean Platelet Volume 10.7 fl (7.4-10.4); Platelet Count Result 235 k/mm3 (150-375); Red Blood Count 5.13 M/mm3 (4.6-6.20); Red Cell Distribution Width 13.1 % (11.5-14.5); White Blood Count 9.2 K/mm3 (4.5-10.0)
[2021-08-30 07:22] LABS: INR 0.9; Prothrombin Time 12.5 Seconds (11.1-14.7)
[2021-08-30 07:29] LABS: Alanine Aminotransferase 25 U/L (4-50); Albumin Level 3.6 g/dL (3.5-5.1); Alkaline Phosphatase 47 U/L (38-126); Anion Gap 9 mmol/L (8-16); Aspartate Amino Transferase 20 U/L (17-59); Bilirubin,Total 0.5 mg/dL (0.2-1.3); Blood Urea Nitrogen 16 mg/dL (9-20); Calcium 8.4 mg/dL (8.4-10.2); Carbon Dioxide 23 mmol/L (22-30); Chloride 103 mmol/L (98-107); Estimated CRCL calculation 131 ml/min; Estimated Glomerular Filt Rate > 60; Glucose 117 mg/dL (65-110); Magnesium 2.4 mg/dL (1.6-2.3); Potassium 4.1 mmol/L (3.4-5.0); Sodium 135 mmol/L (137-145)
[2021-08-30 08:00] VITALS: BP 100/62; PULSE 59; RESP 16; TEMP 36.8; O2SAT 92
[2021-08-30] MEDS: guaiFENesin 12 HR 600 MG TABCR 1200 MG PO (08:47)
[2021-08-30] MEDS: PANTOPRAZOLE 40 MG TABLET PO (08:47)
[2021-08-30] MEDS: BENZONATATE 100 MG CAPSULE 200 MG PO ×2 (08:47→12:25)
[2021-08-30] MEDS: ENOXAPARIN 40 MG/0.4 ML SYRINGE SUB-Q (08:47)
--- NOTE | 2021-08-30 08:55 | WPDPN ---
Progress Note: A&P Assessment and Plan (1) Pneumonia due to COVID-19 virus: Code(s): U07.1 - COVID-19; J12.82 - Pneumonia due to coronavirus disease 2019 Status: Acute Assessment and Plan: Continue dexamethasone and remdesivir day 3 Continue supplementary oxygen, Tessalon Perles and guaifenesin Patient will need home O2 eval before discharge (2) Hypoxemia: Code(s): R09.02 - Hypoxemia Status: Acute Assessment and Plan: Secondary to COVID PNA Continue supplementary oxygen D-dimer within normal limits (3) Obstructive sleep apnea on CPAP: Code(s): G47.33 - Obstructive sleep apnea (adult) (pediatric); Z99.89 - Dependence on other enabling machines and devices Status: Chronic Assessment and Plan: Continue CPAP (4) Essential hypertension: Code(s): I10 - Essential (primary) hypertension Status: Chronic Assessment and Plan: Stable Continue amlodipine 10 mg daily and lisinopril 40 mg daily vital signs as ordered Will adjust medication as needed Subjective Date/time seen: 08/30/21 08:55 Exam Narrative: GENERAL: This is a well-nourished, well-developed patient, in no apparent distress. HEAD: normocephalic, atraumatic. EYES: PERRL. Sclera clear/white. Vision is grossly intact. EARS: External ears normal, auditory canals clear and without drainage, TMs normal without perforation. Hearing grossly intact. NOSE: External nose normal with no obvious nasal discharge, nares without redness, no rhinorrhea. THROAT: Mucous membranes moist, posterior pharynx clear. NECK: Neck supple, non-tender without lymphadenopathy, masses or thyromegaly. CARDIOVASCULAR: Regular rate and rhythm without murmurs, gallops, or rubs. RESPIRATORY: Clear to auscultation. Breath sounds equal bilaterally. No wheezes, rales, or rhonchi. GASTROINTESTINAL: Abdomen soft, non-tender, nondistended. Bowel sounds are active. No hepato-splenomegaly, or palpable masses. No guarding. SKIN: warm, intact with no suspicious lesions or rash, good texture and turgor. NEURO: awake, alert, and oriented to person, place and time. There were no obvious focal neurologic abnormalities. Steady gait EXTREMITIES: Normal range of motion. No edema. No calf tenderness. Negative Homans sign bilaterally. BACK: Nontender without deformity or crepitance. No flank tenderness. Objective Data Vital Signs Vital Signs: Vital Signs - 24 hr 08/29/21 09:15 08/29/21 13:52 08/29/21 16:03 Temperature 97.8 F 97.9 F Pulse Rate 69 67 Respiratory Rate 16 14 Blood Pressure 131/74 127/73 Pulse Oximetry 92 95 95 08/29/21 20:00 08/30/21 00:00 08/30/21 04:00 Temperature 98.3 F 97.8 F 98.2 F Pulse Rate 66 54 L 58 L Respiratory Rate 18 18 18 Blood Pressure 102/49 L 103/52 L 102/57 L Pulse Oximetry 95 94 96 08/30/21 08:00 Temperature 98.2 F Pulse Rate 59 L Respiratory Rate 16 Blood Pressure 100/62 Pulse Oximetry 92 Intake/Output Intake/Output: Intake & Output 08/27/21 08/28/21 08/29/21 08/30/21 23:59 23:59 23:59 23:59 Intake Total 250 3290 700 Balance 250 3290 700 Meds/Results Medications: Active Medications Generic Name Dose Route Start Last Admin Trade Name Freq PRN Reason Stop Dose Admin Albuterol 2 puff 08/28/21 15:48 Albuterol Sulfate (*Sp) Aerosol 1 Puff INHALATION QIDRT PRN Shortness Of Breath Amlodipine Besylate 10 mg 08/29/21 09:00 08/29/21 10:10 Amlodipine Besylate 5 Mg Tablet PO 10 mg DAILY KURTIS Administration Benzonatate 200 mg 08/29/21 17:00 08/30/21 08:47 Benzonatate 100 Mg Capsule PO 200 mg TID KURTIS Administration Dexamethasone Sodium Phosphate 6 mg 08/29/21 09:00 08/30/21 08:47 Dexamethasone Sod Phos Inj 10 Mg/Ml 1 Ml Vial IV PUSH 09/06/21 09:01 6 mg DAILY KURTIS Administration Enoxaparin Sodium 40 mg 08/29/21 09:00 08/30/21 08:47 Enoxaparin 40 Mg/0.4 Ml Syringe SUB-Q 40 mg DAILY KURTIS Admini
[2021-08-30] MEDS: REMDESIVIR 100 MG/NS 250 ML 100 MG/250 ML BAG 250 MG IVPB (10:30)
[2021-08-30 12:00] VITALS: BP 111/57; PULSE 69; RESP 14; TEMP 36.7; O2SAT 95
--- NOTE | 2021-08-30 12:07 | PM.DS ---
DS: Admitting Diagnosis Discharge Date 08/30/2021 Admitting Diagnosis Covid DS: Discharge Diagnosis Discharge Diagnosis (1) Pneumonia due to COVID-19 virus: Code(s): U07.1 - COVID-19; J12.82 - Pneumonia due to coronavirus disease 2019 Status: Acute Assessment and Plan: Will discharge home with dexamethasone Continue supplementary oxygen if needed, Tessalon Perles and guaifenesin Home O2 eval pending (2) Hypoxemia: Code(s): R09.02 - Hypoxemia Status: Acute Assessment and Plan: Secondary to COVID PNA Continue supplementary oxygen D-dimer within normal limits (3) Obstructive sleep apnea on CPAP: Code(s): G47.33 - Obstructive sleep apnea (adult) (pediatric); Z99.89 - Dependence on other enabling machines and devices Status: Chronic Assessment and Plan: Continue CPAP (4) Essential hypertension: Code(s): I10 - Essential (primary) hypertension Status: Chronic Assessment and Plan: Stable Continue amlodipine 10 mg daily and lisinopril 40 mg daily vital signs as ordered Will adjust medication as needed DS: Summary Hospital Course Reason for hospitalization: Sore throat Hospital Course: This is a 41-year-old male with hypertension, GERD, and sleep apnea who presented to the emergency department from home for evaluation of sore throat. He has not felt well since Wednesday with several symptoms to include subjective fever, chills, headache, cough productive of clear phlegm, nausea, and vomiting. He was seen in the emergency department for his symptoms at which time he tested positive for COVID by PCR. Patient notes that his situation has improved he is ready to discharge home. Will complete a home O2 evaluation on discharge. He is currently on room air and knows that his coughing is controlled. Patient denies cp, palpitation, diarrhea, constipation, lightheadness, headache, dizziness or chills and fevers. Time Spent with Patient Time attestation: Total time spent providing and/or coordinating discharge services:60 Exam Narrative: GENERAL: This is a well-nourished, well-developed patient, in no apparent distress. HEAD: normocephalic, atraumatic. EYES: PERRL. Sclera clear/white. Vision is grossly intact. EARS: External ears normal, auditory canals clear and without drainage, TMs normal without perforation. Hearing grossly intact. NOSE: External nose normal with no obvious nasal discharge, nares without redness, no rhinorrhea. THROAT: Mucous membranes moist, posterior pharynx clear. NECK: Neck supple, non-tender without lymphadenopathy, masses or thyromegaly. CARDIOVASCULAR: Regular rate and rhythm without murmurs, gallops, or rubs. RESPIRATORY: Clear to auscultation. Breath sounds equal bilaterally. No wheezes, rales, or rhonchi. GASTROINTESTINAL: Abdomen soft, non-tender, nondistended. Bowel sounds are active. No hepato-splenomegaly, or palpable masses. No guarding. SKIN: warm, intact with no suspicious lesions or rash, good texture and turgor. NEURO: awake, alert, and oriented to person, place and time. There were no obvious focal neurologic abnormalities. Steady gait EXTREMITIES: Normal range of motion. No edema. No calf tenderness. Negative Homans sign bilaterally. BACK: Nontender without deformity or crepitance. No flank tenderness. DS: Data Data Completed and Pending Labs on day of discharge: Labs from last 24 hours 08/30/21 08/30/21 08/30/21 06:30 06:30 06:30 WBC 9.2 RBC 5.13 Hgb 14.7 Hct 44.0 MCV 85.8 MCH 28.7 MCHC 33.4 RDW 13.1 Plt Count 235 MPV 10.7 H PT 12.5 INR 0.9 Sodium 135 L Potassium 4.1 Chloride 103 Carbon Dioxide 23 Anion Gap 9 BUN 16 Creatinine 1.00 Estim Creat Clear Calc 131 Estimated GFR > 60 Glucose 117 H Calcium 8.4 Magnesium 2.4 H Total Bilirubin 0.5 AST 20 ALT 25 Alkaline Phosphatase 47 Total Protein 6.
--- NOTE | 2021-08-30 15:33 | PC.NURSE ---
Patient walked throughout room and this nurse monitored SpO2 during walking session and patient maintained oxygen saturations of 95% or greater the entire duration. Provider made aware. Ok to move forward with DC
== END 2021-08-30 15:55 | disposition home or self-care (01) | DRG 177 ==
LOC: ANHED 12:06 → ANH3MEDSUR 14:44
PROVIDERS: Nurse Practitioner; Physician Assistant; Admitting Provider Internal Medicine; Emergency Provider Emergency Medicine; PCP Family Medicine; Visit Provider Internal Medicine
DX: U07.1 COVID-19 (principal); J12.82 Pneumonia due to coronavirus disease 2019; Z68.41 Body mass index [BMI] 40.0-44.9, adult; R09.02 Hypoxemia; G47.33 Obstructive sleep apnea (adult) (pediatric); I10 Essential (primary) hypertension; K21.9 Gastro-esophageal reflux disease without esophagitis; K57.90 Diverticulosis of intestine, part unspecified, without perforation or abscess without bleeding; F41.9 Anxiety disorder, unspecified; E66.9 Obesity, unspecified
CPT/HCPCS: 36415; 36600; 71045; 80053; 82375; 82728; 82805; 83050; 83615; 83735; 85025; 85027; 85380; 85610; 86140; 87081; 87804; 87880; 96365; 96375; 99283; 99291; A9270; C9803; G0378; J1100; J1650; U0003; U0005

== ENCOUNTER 2021-09-08 08:37 | Emergency (ER) | payer OTHER, SELFPAY ==
[2021-09-08 08:56] VITALS: BP 127/66; PULSE 70; RESP 20; TEMP 36.8; O2SAT 97
--- NOTE | 2021-09-08 09:05 | ED.URI ---
HPI - URI/Sore Throat General Chief Complaint: Dizziness Stated Complaint: Dizzy,Light Headed Time Seen by Provider: 09/08/21 09:06 Source: patient, RN notes reviewed and old records reviewed Mode of arrival: ambulatory Limitations: no limitations History of Present Illness HPI Narrative: 41-year-old male presents to the [facility] with intermittent dizziness and lightheaded since developing COVID. Was admitted for 2 days starting on August 28. Has just finished medications. Had a return to work note for September 05. 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 States it only occurs with changing of positions. No neurologic deficits. Denies headaches. Denies any chest pain or shortness of breath. Denies any headaches Related Data Allergies Allergy/AdvReac Type Severity Reaction Status Date / Time No Known Allergies Allergy Verified 09/08/21 09:17 Review of Systems Review of Systems: All systems reviewed & are unremarkable except as noted in HPI and below Constitutional: Constitutional: Reports no additional constitutional complaints, Denies chills and Denies fever(s) Eyes: Eyes: Reports as per HPI, Reports blurry vision (Intermittent with changing of position and dizziness. ), Denies change in vision, Denies eye discharge, Denies loss of vision, Denies other visual disturbances, Denies eye pain and Denies spots in vision ENT: Reports system reviewed and no additional complaints, except as documented Cardiovascular: Cardiovascular: Reports no additional cardiovascular complaints and Denies chest pain Respiratory: Respiratory: Reports no additional respiratory complaints, Denies cough, Denies dyspnea and Denies wheezing Gastrointestinal: Gastrointestinal: Reports no additional gastrointestinal complaints, Denies abdominal pain, Denies nausea and Denies vomiting Musculoskeletal: Musculoskeletal: Reports no additional musculoskeletal complaints and Denies myalgias Integumentary/Breasts: Skin/Breast: Reports system reviewed and no additional complaints, except as docu Neurologic: Reports as per HPI, Denies confusion, Reports vertigo, Reports dizziness, Denies syncope, Denies headache(s), Denies focal weakness, Denies numbness and Denies weakness Psychiatric: Psychiatric: Reports no additional psychiatric complaints Allergic/Immunologic: Allergic/Immunologic: Reports no additional allergic/immunologic complaints PMFSH Past Medical History Medical History (Updated 09/08/21 @ 09:20 by Katelin Arriaga) Anxiety Congenital stenosis of lumbar spine Essential hypertension Gastroesophageal reflux disease History of diverticulitis Migraine headache Obstructive sleep apnea on CPAP Surgical History Surgical History History of right inguinal hernia repair Family History Family History Father , Age 45 Acute myocardial infarction, Onset Age: 45 Social History Social History Social History: Surrogate decision maker: Hali Lee, spouse. Code status: Full code. Smoking status: Never smoker Alcohol intake: never Substance use: never Substance use type: does not use Additional living arrangements comments: The patient lives with his and their 2 [facility] in [place]. 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 Spiritual care concerns: No Comments At the time of my signature, I reviewed and agree with the nursing past medical, surgical, social, and family history. There is no relevant family history pertinent to the patient complaint. Exam Const: General: healthy appearing, no acute distress and alert Nutritional Appearance: well nourished and obese Orientation/consciousness: patient oriented x3 Limitations: no limitations TANAMT: Rohan
== END 2021-09-08 09:28 | disposition home or self-care (01) ==
PROVIDERS: Emergency Provider Nurse Practitioner; PCP Family Medicine
DX: R42 Dizziness and giddiness (principal); H65.02 Acute serous otitis media, left ear; Z86.16 Personal history of COVID-19; I10 Essential (primary) hypertension; K21.9 Gastro-esophageal reflux disease without esophagitis; G47.33 Obstructive sleep apnea (adult) (pediatric); Q76.49 Other congenital malformations of spine, not associated with scoliosis
CPT/HCPCS: 99213; G0463

== ENCOUNTER 2021-09-08 13:19 | Outpatient (CLI) | payer OTHER, SELFPAY ==
[2021-09-08 13:45] LABS: Basophils Absolute Auto 0.1 K/mm3 (0.0-0.1); Basophils Percent Auto 0.2 % (0.2-1.2); Hematocrit 44.5 % (42.0-52.0); Immature Granulocyte Absolute 0.63 K/mm3 (0.00-0.031); Immature Granulocyte Percent A 2.8 % (0-0.5); Lymphocytes Absolute Auto 2.27 K/mm3 (0.9-3.2); Lymphocytes Percent Auto 10.2 % (18.3-44.2); Mean Corpuscular HGB Conc 33.7 g/dl (32-36); Mean Corpuscular Volume 85.9 fl (80-100); Mean Platelet Volume 9.8 fl (7.4-10.4); Monocytes Absolute Auto 3.4 K/mm3 (0.1-0.6); Monocytes Percent Auto 15.4 % (2.6-8.5); Neutrophils Absolute Auto 15.9 K/mm3 (1.3-6.7); Neutrophils Percent Auto 71.4 % (45.5-73.1); Platelet Count Result 314 k/mm3 (150-375); Red Blood Count 5.18 M/mm3 (4.6-6.20); Red Cell Distribution Width 13.7 % (11.5-14.5); White Blood Count 22.3 K/mm3 (4.5-10.0)
[2021-09-08 13:53] LABS: Alanine Aminotransferase 34 U/L (4-50); Albumin Level 3.6 g/dL (3.5-5.1); Alkaline Phosphatase 60 U/L (38-126); Anion Gap 6 mmol/L (8-16); Aspartate Amino Transferase 21 U/L (17-59); Bilirubin,Total 0.4 mg/dL (0.2-1.3); Blood Urea Nitrogen 18 mg/dL (9-20); Calcium 8.2 mg/dL (8.4-10.2); Carbon Dioxide 25 mmol/L (22-30); Chloride 102 mmol/L (98-107); Estimated Glomerular Filt Rate > 60; Glucose 92 mg/dL (65-110); Potassium 4.1 mmol/L (3.4-5.0); Sodium 133 mmol/L (137-145)
== END 2021-09-08 13:20 | disposition home or self-care (01) ==
LOC: ANHLAB 13:21
PROVIDERS: PCP Family Medicine; Visit Provider Family Medicine
DX: R53.83 Other fatigue (principal)
CPT/HCPCS: 36415; 80053; 85025; 99213; G0463

== ENCOUNTER 2021-12-15 02:03 | Day surgery (SDC) | payer OTHER, SELFPAY ==
[2021-12-05 12:00] VITALS: BMI 46.3
--- NOTE | 2021-12-12 13:57 | PM.HPGS ---
History of Present Illness History of Present Illness Consent: Risks, benefits, and alternatives have been discussed and questions answered. Patient agrees to proceed with procedure. Chief complaint: Epigastric pain, GERD Narrative: Buster Lee is a 41 year old male who complaints of intermittent epigastric pain that Begin in the right lower quadrant and then radiates up towards the left upper quadrant and at times across to the right upper quadrant. At times he will feel soreness radiating up the sternal area as well. Prior studies including ultrasound and HIDA scan were normal. His pain is primarily however on the left side, at the left lower thorax. He showed me where it is present now on the lower thorax. This pain, which is his predominant pain will feel worse at times if he lays on that side. Particularly since he got COVID, this pain has been more troublesome. . Reports pain has been going on for approximately 2 years and will occur 2 to 3 times a week. Pain is severe and sharp in nature. It can last anywhere from 2-3 minutes to several hours. He does not always associated pain with eating, although it can occur with eating but a lot of times it will occur in the middle of the night when he rolls over. He reports heartburn symptoms (at the xiphoid process) and intermittent vomiting after eating. he denies any dysphagia or odynophagia. He cannot identify any particular foods that make his symptoms worse. He is taking omeprazole any thought at 1st it helped with his symptoms. Now he is more symptomatic than he had been initially, Although he has less heartburn. also, at times he will finish a meal and and throw up everything he has eaten. There has been no weight loss and he denies dysphagia Review of Systems Review of Systems: All systems reviewed & are unremarkable except as noted in HPI and below PMFSH Past Medical History Medical History Anxiety Congenital stenosis of lumbar spine Essential hypertension Gastroesophageal reflux disease History of diverticulitis Migraine headache Obstructive sleep apnea on CPAP Surgical History Surgical History History of right inguinal hernia repair Family History Family History Father , Age 45 Acute myocardial infarction, Onset Age: 45 Social History Social History Social History: Surrogate decision maker: Hali Lee, spouse. Code status: Full code. Smoking status: Never smoker Second hand tobacco smoke exposure: No Alcohol intake: never Substance use: never Substance use type: does not use Living arrangements: with family Additional living arrangements comments: The patient lives with his and their 2 [facility] in [place]. 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 Gender identity (if verbalized by the patient): Male Sexual Orientation (if Verbalized by the Patient): Straight or Heterosexual Spiritual care concerns: No Meds Home Medications and Allergies Home Medications Medication Instructions Recorded Confirmed Type lisinopril 40 mg tablet 40 mg PO DAILY #30 tablet 07/04/21 12/05/21 Rx omeprazole 40 mg capsule,delayed 40 mg PO DAILY #30 cap 10/20/21 12/05/21 Rx release dicyclomine 20 mg tablet 20 mg PO TID #90 tablet 10/30/21 12/05/21 Rx hydrochlorothiazide 12.5 mg tablet 12.5 mg PO QAM #90 tablet 11/21/21 12/05/21 Rx Allergies Allergy/AdvReac Type Severity Reaction Status Date / Time No Known Allergies Allergy Verified 12/15/21 06:27 Exam Const: General: alert Nutritional Appearance: obese Orientation/consciousness: patient oriented x3 Resp: Auscultation: clear to auscultation bilaterally Cardio: Rhythm: regular rhythm GI: Inspection: obesity GI Pal
[2021-12-15 06:29] VITALS: BMI 45.5
[2021-12-15 06:39] VITALS: BP 134/70; PULSE 59; RESP 16; TEMP 35.9; O2SAT 99
[2021-12-15] MEDS: LACTATED RINGERS 1,000 ML 150 ML IV CONT (06:41)
--- NOTE | 2021-12-15 06:41 | P.PNAN_ITS ---
Anes - Initial Pre Proc Eval Procedure: Operation Date: 12/15/21 07:30 Proposed Procedures p Esophagogastroduodenoscopy - Alirio Escamilla MD Date/Time: 12/15/21 06:41 Surgeon: Alirio Escamilla MD Pre Op Diagnosis: Epigastric pain, GERD Patient Data Age: 41 Gender: M Height: 1.85 m Weight: 156.6 kg Last Vital Signs Temp 35.9 C L 12/15/21 06:39 Pulse 59 L 12/15/21 06:39 Resp 16 12/15/21 06:39 BP 134/70 12/15/21 06:39 Pulse Ox 99 12/15/21 06:39 Allergies Allergy/AdvReac Type Severity Reaction Status Date / Time No Known Allergies Allergy Verified 12/15/21 06:27 Home Medications Medication Instructions Recorded Confirmed Type lisinopril 40 mg tablet 40 mg PO DAILY #30 tablet 07/04/21 12/05/21 Rx omeprazole 40 mg capsule,delayed 40 mg PO DAILY #30 cap 10/20/21 12/05/21 Rx release dicyclomine 20 mg tablet 20 mg PO TID #90 tablet 10/30/21 12/05/21 Rx hydrochlorothiazide 12.5 mg tablet 12.5 mg PO QAM #90 tablet 11/21/21 12/05/21 Rx Patient hx anesthesia problems: none Family hx anesthesia problems: none Results Review: All pre-operative results and documents have been reviewed as part of the pre-operative evaluation. [facility] Past Medical History Medical History Anxiety Congenital stenosis of lumbar spine Essential hypertension Gastroesophageal reflux disease History of diverticulitis Migraine headache Obstructive sleep apnea on CPAP Surgical History Surgical History History of right inguinal hernia repair Family History Family History Father , Age 45 Acute myocardial infarction, Onset Age: 45 Social History Social History Social History: Surrogate decision maker: Hali Lee, spouse. Code status: Full code. Smoking status: Never smoker Second hand tobacco smoke exposure: No Alcohol intake: never Substance use: never Substance use type: does not use Living arrangements: with family Additional living arrangements comments: The patient lives with his and their 2 [facility] in [place]. 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 Gender identity (if verbalized by the patient): Male Sexual Orientation (if Verbalized by the Patient): Straight or Heterosexual Spiritual care concerns: No Anes - Eval Final PreProcedure Day of Procedure 12/15/21 06:41 Patient weight: morbidly obese Heart: regular rate and rhythm Lungs: clear to auscultation Airway: Mallampati scale class II Neurological: alert and oriented Last oral intake: >/= 8 hours ASA classification: III Emergent: no Anesthetic plan: proceed Anesthesia type and monitoring: general GIVS and standard monitoring Results Review: All pre-operative results and documents have been reviewed as part of the pre-operative evaluation. Informed Consent: The patient's anesthetic plan and its attendant risks and benefits were discussed with the patient/family/POA. Questions were solicited and answers provided to the satisfaction of the patient/family/POA.
[2021-12-15 07:42] VITALS: BP 94/48; PULSE 58; RESP 14; O2SAT 95
[2021-12-15 07:52] VITALS: BP 97/47; PULSE 56; RESP 19; O2SAT 95
[2021-12-15 08:02] VITALS: BP 104/49; PULSE 55; RESP 19; O2SAT 97
== END 2021-12-15 08:11 | disposition home or self-care (01) ==
PROVIDERS: PCP Family Medicine; Visit Provider Internal Medicine Gastroenterology
PROC: 0DJ08ZZ Inspection of Upper Intestinal Tract, Via Natural or Artificial Opening Endoscopic (ICD-10-PCS; CPT 43235; principal; 2021-12-15 07:30)
DX: K21.9 Gastro-esophageal reflux disease without esophagitis (principal); K29.70 Gastritis, unspecified, without bleeding; I10 Essential (primary) hypertension; G47.33 Obstructive sleep apnea (adult) (pediatric); F41.9 Anxiety disorder, unspecified; E66.01 Morbid (severe) obesity due to excess calories; Z68.42 Body mass index [BMI] 45.0-49.9, adult
CPT/HCPCS: 43239; 87081; 88305; J2704; J7120

== ENCOUNTER 2022-05-14 17:21 | Emergency (ER) | payer SELFPAY ==
--- NOTE | ~2022-05-14 | CT_ITS ---
EXAMINATION: CT cervical spine wo con DATE: 05/14/2022 20:27 INDICATION: Midline spinal tenderness. TECHNIQUE: Computed tomography (CT) of the cervical spine was performed without intravenous contrast. The dose-length product was 598 mGy-cm. Automated exposure control and iterative reconstruction tech nique were employed. COMPARISON: None FINDINGS: There is straightening of normal cervical lordosis. There is mild superior endplate dhiarj cesar deformity of T1, likely chronic. Prominent ventral osteophyte at C2-3. Spinous processes are nor mal. No evidence for perched facet. Odontoid process is normal. Craniovertebral junction within ramana l limits. Mild uncinate degenerative changes. Lung apices are normal. No significant paraspinal soft tissue abnormality. IMPRESSION: 1. No acute abnormality of the cervical spine. 2: Mild cervical spondylosis. Reviewed, dictated and finalized at location A.
[2022-05-14 17:23] VITALS: BP 125/100; PULSE 79; RESP 16; TEMP 36.4; O2SAT 99
--- NOTE | 2022-05-14 19:17 | PC.NURSE ---
Patient report given to PAXTON Galvez. All questions answered and care of patient transferred.
--- NOTE | 2022-05-14 19:46 | ED.BACK ---
HPI - Back Pain/Injury General Chief Complaint: Back Pain/Injury <MONICA Vargas Last Filed: 05/14/22 21:41> Stated Complaint: neck/shoulder muscle pain <MONICA Vargas Last Filed: 05/14/22 21:41> Time Seen by Provider: 05/14/22 18:59 <MONICA Vargas Last Filed: 05/14/22 21:41> Source: patient <MONICA Vargas Last Filed: 05/14/22 21:41> Mode of arrival: ambulatory <MONICA Vargas Last Filed: 05/14/22 21:41> Limitations: no limitations <MONICA Vargas Last Filed: 05/14/22 21:41> History of Present Illness HPI Narrative: Patient is a 41-year-old male who presents to the ED with report of neck pain. Patient reports he woke up 3 days ago with pain in his posterior neck, radiating into his bilateral shoulders. He assumed he just slept wrong. Pain has since persisted. Occasional radiation down arms. No numbness, tingling, weakness. He has been taking Advil and Tylenol at home without much relief. Denies any known injury, fall, headache, vision changes, fever. <MONICA Vargas Last Filed: 05/14/22 21:41> Related Data Allergies/Adverse Reactions: Allergies Allergy/AdvReac Type Severity Reaction Status Date / Time No Known Allergies Allergy Verified 05/30/22 12:15 <MONICA Vargas Last Filed: 05/14/22 21:41> Review of Systems Review of Systems: CONSTITUTIONAL: Denies fever. EYES: Denies visual changes. MUSCULOSKELETAL: Reports posterior neck pain into shoulders. NEUROLOGIC: Denies headache, tingling, numbness, or weakness. <MONICA Vargas Last Filed: 05/14/22 21:41> All systems reviewed & are unremarkable except as noted in HPI and below <MONICA Vargas Last Filed: 05/14/22 21:41> [facility] Past Medical History Medical History: Medical History Anxiety Congenital stenosis of lumbar spine Essential hypertension Gastroesophageal reflux disease History of diverticulitis Migraine headache Obstructive sleep apnea on CPAP <MONICA Vargas Last Filed: 05/14/22 21:41> Surgical History Surgical History: Surgical History History of right inguinal hernia repair <MONICA Vargas Last Filed: 05/14/22 21:41> Family History Family History: Family History Father , Age 45 Acute myocardial infarction, Onset Age: 45 <MONICA Vargas Last Filed: 05/14/22 21:41> Social History Social History: Social History Social History: Surrogate decision maker: Hali Lee, spouse. Code status: Full code. Smoking status: Never smoker Second hand tobacco smoke exposure: No Alcohol intake: never Substance use: never Substance use type: does not use Additional living arrangements comments: The patient lives with his and their 2 [facility] in [place]. 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 Gender identity (if verbalized by the patient): Male Sexual Orientation (if Verbalized by the Patient): Straight or Heterosexual Spiritual care concerns: No <MONICA Vargas Last Filed: 05/14/22 21:41> Exam Narrative: GENERAL: Well appearing, morbidly obese, non-toxic, in no acute distress. HEAD: Normocephalic, atraumatic. NECK: Supple. No adenopathy, no masses. Full ROM with flexion, extension, rotation, thought patient does have some discomfort with this. No meningeal signs. Some mild midline spinal tenderness. Bilateral paraspinal muscle tenderness. RESPIRATORY: Airway patent, respirations nonlabored. Clear to auscultation bilaterally, no rales, rhonchi, wheezing. CARDIOVASCULAR: Regular rate
[2022-05-14] MEDS: KETOROLAC (*BKC) 60 MG/2 ML VIAL IM (20:03)
[2022-05-14] MEDS: CYCLOBENZAPRINE HCL 5 MG TABLET PO (20:03)
== END 2022-05-14 21:26 | disposition home or self-care (01) ==
PROVIDERS: Emergency Provider Emergency Medicine; PCP Family Medicine
DX: S16.1XXA Strain of muscle, fascia and tendon at neck level, initial encounter (principal); I10 Essential (primary) hypertension; K21.9 Gastro-esophageal reflux disease without esophagitis; G47.33 Obstructive sleep apnea (adult) (pediatric); M47.812 Spondylosis without myelopathy or radiculopathy, cervical region; X58.XXXA Exposure to other specified factors, initial encounter
CPT/HCPCS: 72125; 96372; 99284; A9270; J1885

== ENCOUNTER 2022-05-30 12:05 | Emergency (ER) | payer OTHER, SELFPAY ==
[2022-05-30 12:16] VITALS: BP 121/73; PULSE 98; RESP 16; TEMP 36.1; O2SAT 98
--- NOTE | 2022-05-30 12:18 | ED.URI ---
HPI - URI/Sore Throat General Chief Complaint: Upper Respiratory Infection Stated Complaint: chest cassandra Time Seen by Provider: 05/30/22 12:18 Source: patient Mode of arrival: ambulatory Limitations: no limitations History of Present Illness HPI Narrative: Mr. Lee is a 41-year-old male patient presenting to the clinic today with complaints of cough and chest congestion x1 day. [place] as though he was wheezing last night, he reports no known exposure to anyone with COVID, flu, or strep. No sick contacts. Reports he feels congested in his lungs and has a productive cough at times with white phlegm. He is a non-smoker. He has no history of asthma or COPD. States he does have occasional shortness of breath. He denies any chest pain. MD elicited complaint: other (Chest congestion) Related Data Allergies Allergy/AdvReac Type Severity Reaction Status Date / Time No Known Allergies Allergy Verified 05/30/22 12:15 Review of Systems Review of Systems: Pertinent positives per HPI. Patient denies any fever, chills, rash, headache, visual changes, dizziness, chest pain, palpitations, nausea, vomiting, diarrhea, constipation, abdominal pain, or any urinary issues. [facility] Past Medical History Medical History Anxiety Congenital stenosis of lumbar spine Essential hypertension Gastroesophageal reflux disease History of diverticulitis Migraine headache Obstructive sleep apnea on CPAP Surgical History Surgical History History of right inguinal hernia repair Family History Family History Father , Age 45 Acute myocardial infarction, Onset Age: 45 Social History Social History Social History: Surrogate decision maker: Hali Lee, spouse. Code status: Full code. Smoking status: Never smoker Second hand tobacco smoke exposure: No Alcohol intake: never Substance use: never Substance use type: does not use Additional living arrangements comments: The patient lives with his and their 2 [facility] in [place]. 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 Gender identity (if verbalized by the patient): Male Sexual Orientation (if Verbalized by the Patient): Straight or Heterosexual Spiritual care concerns: No Comments At the time of my signature, I reviewed and agree with the nursing past medical, surgical, social, and family history. There is no relevant family history pertinent to the patient complaint. Exam Narrative: General: Well-developed, morbidly obese, in no apparent distress Head: Normocephalic, atraumatic Eyes: Pupils equally round and reactive to light bilaterally, EOM intact, sclera and conjunctive clear, no discharge, lids normal Ears: TMs intact and clear, ear canals clear, no drainage, grossly hearing normal. Nose: Nares patent, clear nasal discharge, no inflammation, no sinus tenderness. Mouth: Oral pharynx without lesions or masses, good dentition, MMM. Postnasal drip Neck: Supple, trachea midline, no enlargement of anterior or posterior cervical nodes, no thyroid masses or goiter palpable. Cardio: Regular rate and rhythm, s1 and s2 normal, no murmur appreciated. Resp: Clear to auscultation bilaterally, no rhonchi, rales, wheezing or rubs Course Course Emergency Course: Portions of this record may have been created with voice recognition software. Level of Care: Express Care Visit Vital Signs Vital signs: Vital Signs Temperature 36.1 C L 05/30/22 12:16 Pulse Rate 98 05/30/22 12:16 Respiratory Rate 16 05/30/22 12:16 Blood Pressure 121/73 05/30/22 12:16 Pulse Oximetry 98 05/30/22 12:16 Temperature 36.1 C L 05/30/22 12:16 Pulse Rate 98 05/30/22 12:16 Respiratory Rate 16
== END 2022-05-30 12:36 | disposition home or self-care (01) ==
PROVIDERS: Emergency Provider Nurse Practitioner Family; PCP Family Medicine
DX: J06.9 Acute upper respiratory infection, unspecified (principal); R05.1 Acute cough; I10 Essential (primary) hypertension; K21.9 Gastro-esophageal reflux disease without esophagitis; G47.33 Obstructive sleep apnea (adult) (pediatric); Q76.49 Other congenital malformations of spine, not associated with scoliosis
CPT/HCPCS: 99213; G0463

== ENCOUNTER 2022-06-09 14:32 | Outpatient (CLI) | payer OTHER, SELFPAY ==
--- NOTE | ~2022-06-09 | CT_ITS ---
EXAMINATION: CT abdomen pelvis wo con DATE: 06/09/2022 14:55 INDICATION: Right flank pain TECHNIQUE: Computed tomography (CT) of the abdomen and pelvis was performed without intravenous contr ast. The dose-length product (DLP) was 1707.01 mGy-cm. Automated exposure control and iterative recon struction technique were employed. COMPARISON: 10/26/2017 FINDINGS: Minimal dependent atelectasis is present in the lung bases. The heart size is normal. Cysts of the liver measure up to 12 mm. The spleen, pancreas, gallbladder, and adrenal glands are normal. The kidneys are unremarkable. No stones are identified in the kidneys, ureters, or bladder. There is no hydronephrosis or hydroureter. No pathologically enlarged abdominal or pelvic lymph nodes are iden tified. There is no free intraperitoneal gas or evidence of bowel obstruction. Colonic diverticulosis is present without evidence of diverticulitis. There are umbilical and bilateral inguinal hernias co ntaining fat. IMPRESSION: 1. No CT correlate for the patient's symptoms. 2. Umbilical and bilateral inguinal hernias containing fat. Reviewed, dictated and finalized at location A.
== END 2022-06-09 14:33 | disposition home or self-care (01) ==
LOC: ANHIMG 14:34
PROVIDERS: PCP Family Medicine; Visit Provider Physician Assistant
DX: K40.20 Bilateral inguinal hernia, without obstruction or gangrene, not specified as recurrent (principal); K42.9 Umbilical hernia without obstruction or gangrene
CPT/HCPCS: 74176

== ENCOUNTER 2023-07-23 18:13 | Emergency (ER) | payer SELFPAY ==
[2023-07-23 18:25] VITALS: BP 126/67; PULSE 101; RESP 16; TEMP 39.1; O2SAT 96
--- NOTE | 2023-07-23 19:41 | ED.URI ---
HPI - URI/Sore Throat General Chief Complaint: Upper Respiratory Infection Stated Complaint: Sinus Time Seen by Provider: 07/23/23 19:30 Source: patient and RN notes reviewed Mode of arrival: ambulatory Limitations: no limitations History of Present Illness HPI Narrative: Patient presents today with a 3 week history of cough, sinus pressure, rhinorrhea an intermittent fever up to 99. Denies shortness of breath, chest pain, sore throat. He has been taking DayQuil, NyQuil, and Mucinex without much relief. Denies history of asthma or COPD. He is a nonsmoker. Patient has not had a fever today, but fever of 102.3 upon arrival at Urgent Care today Related Data Allergies Allergy/AdvReac Type Severity Reaction Status Date / Time No Known Allergies Allergy Verified 07/23/23 18:48 Review of Systems Review of Systems: CONSTITUTIONAL: Denies body aches, chills, or sweats.+ fever EYES: Denies visual changes, redness, or discharge. ENT: Denies rhinorrhea, or otalgia.+ congestion, sinus pressure CARDIOVASCULAR: Denies chest pain, palpitations, or edema. RESPIRATORY: Denies dyspnea.+ cough GASTROINTESTINAL: Denies abdominal pain, nausea, vomiting, or diarrhea. GENITOURINARY: Denies dysuria or hematuria. SKIN: Denies rash, itching, or wounds. MUSCULOSKELETAL: Denies back pain, joint pain, or myalgia. NEUROLOGIC: Denies headache, numbness, tingling, or weakness. PSYCH: Denies depression or anxiety. [facility] Past Medical History Medical History Anxiety Congenital stenosis of lumbar spine Essential hypertension Gastroesophageal reflux disease History of diverticulitis Migraine headache Obstructive sleep apnea on CPAP Surgical History Surgical History History of right inguinal hernia repair Family History Family History Father , Age 45 Acute myocardial infarction, Onset Age: 45 Social History Social History Social History: Surrogate decision maker: Hali Lee, spouse. Code status: Full code. Smoking status: Never smoker Second hand tobacco smoke exposure: No Alcohol intake: never Substance use: never Substance use type: does not use Living arrangements: with family Additional living arrangements comments: The patient lives with his and their 2 [facility] in [place]. 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 Gender identity (if verbalized by the patient): Male Sexual Orientation (if Verbalized by the Patient): Straight or Heterosexual Spiritual care concerns: No Comments At time of signature, I have reviewed and agree with nursing past medical, surgical, social and family history unless otherwise noted. Please see nursing chart for further information. There is no relevant family history pertinent to the presenting complaint Exam Narrative: GENERAL: Mildly ill-appearing, well-nourished, and in no acute distress. HEAD: Normocephalic, atraumatic. EYES: EOMI. No redness or drainage. Conjunctivae normal. ENT: Mucous membranes pink and moist. Nares congested. No rhinorrhea. TMs normal bilaterally. Throat normal. Uvula midline. NECK: Normal AROM. Supple. No lymphadenopathy. CHEST: No respiratory distress. Clear to auscultation. HEART: Regular rate and rhythm. No murmur appreciated. EXTREMITIES: Normal range of motion. No edema. SKIN: Warm, dry, no rash. Capillary refill normal. Normal skin turgor. NEURO: No focal deficits. Alert and oriented x3. Gait steady. PSYCH: Normal affect. No signs of depression or anxiety. Course Course Level of Care: Express Care Visit Vital Signs Vital signs: Vital Signs Temperature 102.3 F H 07/23/23 18:25 Pulse Rate 101 H
[2023-07-23 19:51] VITALS: TEMP 38.4
== END 2023-07-23 19:51 | disposition home or self-care (01) ==
PROVIDERS: Emergency Provider Nurse Practitioner; PCP Family Medicine
DX: J40 Bronchitis, not specified as acute or chronic (principal); J01.90 Acute sinusitis, unspecified; I10 Essential (primary) hypertension; K21.9 Gastro-esophageal reflux disease without esophagitis; G47.33 Obstructive sleep apnea (adult) (pediatric); Q76.49 Other congenital malformations of spine, not associated with scoliosis
CPT/HCPCS: 99213; G0463

== ENCOUNTER 2024-04-23 09:18 | Emergency (ER) | payer OTHER, SELFPAY ==
--- NOTE | ~2024-04-23 | XR_ITS ---
Right ankle Technique: AP, oblique, and lateral views were obtained. Clinical History: Pain Findings: No acute fracture or dislocation is seen. Osseous alignment is anatomic. Ankle mortise and other visualized joint spaces are preserved. Mild soft tissue edema is nonspecific. Impression: No acute fracture or dislocation. Nonspecific soft tissue edema. Reviewed, dictated and finalized at [facility]. Impression: No acute fracture or dislocation. Nonspecific soft tissue edema.
[2024-04-23 09:26] VITALS: BP 132/82; PULSE 77; RESP 16; TEMP 36.4; O2SAT 96
--- NOTE | 2024-04-23 09:34 | ED.LOWEXIN ---
HPI - Extremity Injury (Lower) General Chief Complaint: Extremity Injury, Lower Stated Complaint: Injured Right Ankle Source: patient Mode of arrival: ambulatory Limitations: no limitations History of Present Illness HPI Narrative: 43-year-old male presented for complaint of right ankle pain. Onset 529. Pain is to the outer aspect and the top of foot. He denies specific injury, states he did get out of bed and when he applied weight he noted the pain. Has not taken anything for pain rates pain 01/30. Denies redness, warmth, swelling or deformity. Related Data Allergies Allergy/AdvReac Type Severity Reaction Status Date / Time No Known Allergies Allergy Verified 04/23/24 09:29 Review of Systems Review of Systems: CONSTITUTIONAL: Denies body aches, fever, chills CARDIOVASCULAR: Denies chest pain, palpitations, or edema. RESPIRATORY: Denies cough or dyspnea. SKIN: Denies rash, itching, or wounds. MUSCULOSKELETAL: Reports right ankle pain NEUROLOGIC: Denies headache, numbness, tingling, or weakness. All systems reviewed & are unremarkable except as noted in HPI and below PMFSH Past Medical History Medical History Anxiety Congenital stenosis of lumbar spine Essential hypertension Gastroesophageal reflux disease History of diverticulitis Migraine headache Obstructive sleep apnea on CPAP Surgical History Surgical History History of right inguinal hernia repair Family History Family History Father , Age 45 Acute myocardial infarction, Onset Age: 45 Social History Social History Social History: Surrogate decision maker: Hali Lee, spouse. Code status: Full code. Smoking status: Never smoker Second hand tobacco smoke exposure: No Alcohol intake: never Substance use: never Substance use type: does not use Living arrangements: with family Additional living arrangements comments: The patient lives with his and their 2 [facility] in [place]. 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 Gender identity (if verbalized by the patient): Male Sexual Orientation (if Verbalized by the Patient): Straight or Heterosexual Spiritual care concerns: No Comments At time of signature, I have reviewed and agree with nursing past medical, surgical, social and family history unless otherwise noted. Please see nursing chart for further information. There is no relevant family history pertinent to the presenting complaint Exam Narrative: GENERAL: Well-appearing CHEST: Speaks in full sentences. No respiratory distress. HEART: Regular rate and rhythm. Normal and equal peripheral pulses. EXTREMITIES: Right foot and ankle have normal strength and sensation, normal range of motion with flexion/extension/rotation of ankle, but endorses pain with movement. Tender with palpation to the right lateral malleolus.Mild swelling. No redness, warmth or ecchymosis, No open wounds, or obvious deformity; alignment normal, Left DP pulse +2, right DP pulse +1. skin warm, dry, pink. Capillary refill less than 3 seconds. SKIN: Warm, dry, no rash. NEURO: Alert and oriented x3. PSYCH: Normal mood and affect Course Course Emergency Course: Patient is aware of diagnosis, understands and agrees to treatment plan. Anticipatory guidance given. Patient agrees to follow-up as directed and is aware of reasons to seek care at the emergency department. Portions of this record may have been created with voice recognition software Level of Care: Express Care Visit Vital Signs Vital signs: Vital Signs Temperature 97.5 F L 04/23/24 09:26 Pulse Rate 77 04/23/24 09:26 Respiratory Rate 16 04/23/24 09:26 Blood Pressur
== END 2024-04-23 10:06 | disposition home or self-care (01) ==
PROVIDERS: Emergency Provider Nurse Practitioner Family; PCP Family Medicine
DX: M25.571 Pain in right ankle and joints of right foot (principal); I10 Essential (primary) hypertension; K21.9 Gastro-esophageal reflux disease without esophagitis; G47.33 Obstructive sleep apnea (adult) (pediatric); Q76.49 Other congenital malformations of spine, not associated with scoliosis
CPT/HCPCS: 73610; 99213; G0463

== ENCOUNTER 2024-04-27 09:58 | Outpatient (RCR) | payer OTHER, SELFPAY ==
[2024-04-27 09:49] VITALS: BMI 52.0
[2024-04-27 09:50] VITALS: BMI 52.0
== END 2024-07-24 10:58 | disposition home or self-care (01) ==
LOC: ANHDMC 09:58
PROVIDERS: PCP Family Medicine; Visit Provider Physician Assistant Medical
DX: E66.01 Morbid (severe) obesity due to excess calories (principal); Z71.3 Dietary counseling and surveillance; Z68.43 Body mass index [BMI] 50.0-59.9, adult
CPT/HCPCS: 97802

== ENCOUNTER 2024-10-15 14:48 | Emergency (ER) | payer OTHER, SELFPAY ==
[2024-10-15 14:54] VITALS: BP 139/80; PULSE 81; RESP 17; TEMP 36.5; O2SAT 96
--- NOTE | 2024-10-15 15:40 | PC.NURSE ---
Patient to ED stating his pain has subsided and he did not want to be seen anymore. Patient ambulatory out of ED with steady gait and in no obvious distress.
--- OUTSIDE RECORDS SUMMARY | 2024-10-16 00:26 | XMS_ITS | Referral Summary ---
Author Organization [facility] Main [facility] Address [address] [place] [address] Care Team Providers Care Medical Office Representative Name Role Phone Chelle Dennis Primary Care Provider Allergies No known active allergies Medications cholecalciferol (VITAMIN D-3) 2000 unit capsule Take 1 capsule (2,000 Units total) by mouth daily 10/29/2023 Active FeroSuL 325 mg (65 mg iron) tablet TAKE 1 TABLET BY MOUTH 3 TIMES WEEKLY 10/26/2023 Active hydroCHLOROthia zide (HYDRODIURIL) 12.5 mg tablet Take 1 tablet (12.5 mg total) by mouth daily 10/20/2023 Active lisinopriL (PRINIVIL,ZESTR IL) 40 mg tablet Take 1 tablet (40 mg total) by mouth daily 10/20/2023 Active omeprazole (PriLOSEC) 40 mg capsule Take 1 capsule (40 mg total) by mouth daily 08/28/2023 Active nortriptyline (PAMELOR) 25 mg capsule TAKE 1 CAPSULE BY MOUTH EVERY DAY AT BEDTIME 10/20/2023 Active Active Problems Problem Noted Date Diagnosed Date Obstructive sleep apnea (adult) (pediatric) 10/22 Morbid obesity with BMI of 45.0-49.9, adult 10/22 Social History Tobacco Use Types Packs/Day Years Used Date Smoking Tobacco: Never Assessed Personal Safety Answer Date Recorded Getting School Help Needed Not on file 09/09 Sex and Gender Information Value Date Recorded Sex Assigned at Not on file 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 Gender Identity Not on file Sexual Orientation Not on file Last Filed Vital Signs Vital Sign Reading Time Taken Comments Blood Pressure - - Pulse 86 11/15/2023 7:59 AM CDT Temperature 37.1 C (98.7 F) 11/15/2023 7:59 AM CDT Respiratory Rate - - Oxygen Saturation 95% 11/15/2023 7:59 AM CDT Inhaled Oxygen Concentration - - Weight 170.6 kg (376 lb) 11/15/2023 7:59 AM CDT Height 185.4 cm (6' 1 ) 11/15/2023 7:59 AM CDT Body Mass Index 49.61 11/15/2023 7:59 AM CDT Plan of Treatment Not on file Insurance Care Teams Medical Office Representative Relationship Specialty Start Date End Date Chelle Dennis PA [address] [place] [address] PCP - General Physician Painter Touch Up 09/10/23
--- OUTSIDE RECORDS SUMMARY | 2024-10-16 00:26 | XMS_ITS | Clinical Summary ---
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 Gender Identity Not on file Sexual Orientation [...] 11/15/2023 7:59 AM CDT Plan of Treatment Health Maintenance Due Date Last Done Comments Colon Cancer Screening-Colonoscopy 1979 Depression Screening 1979 Hepatitis C Screening 1979 DTaP/Tdap/Td Vaccine (1 - Tdap) 03/26/1995 03/25/1995 Hepatitis B Screening 1997 Regular Well Visit/Exam 18-64 1997 Covid-19 Vaccine (3 2023-2 5 season) 2024 10/20/2021, 01/07/2021 Influenza Vaccine (#1) 2024 HPV Vaccines Aged Out No longer eligi ble based on patient's age to complete this topic Pneumococcal vaccine <65 Aged Out No longer eligible based on patient's age to complete this topic Insurance EMPLOYEES Care Teams Materials Management Clerk Relationship Specialty Start Date End Date Chelle Dennis PA [address] [facility] [address] [place] [address] PCP - General Physician Ict Customer Support Officer 09/10/23
== END 2024-10-16 00:31 | disposition left against medical advice (07) ==
LOC: ANHED 10-16 00:21
PROVIDERS: PCP Family Medicine
DX: R10.31 Right lower quadrant pain (principal)
CPT/HCPCS: 99199

== ENCOUNTER 2024-10-18 12:06 | Outpatient (CLI) | payer OTHER, SELFPAY ==
--- NOTE | ~2024-10-18 | CT_ITS ---
EXAMINATION: CT abdomen pelvis wo con DATE: 10/18/2024 12:27 INDICATION: Right lower quadrant abdominal pain. TECHNIQUE: Computed tomography (CT) of the abdomen and pelvis was performed without intravenous contr ast. Automated exposure control and iterative reconstruction technique were employed. The dose-length product was 1673.88 mGy-cm. COMPARISON: CT abdomen and pelvis 06/09/2022 FINDINGS: The visualized portions of the lung bases demonstrate mild atelectasis. No pleural effusion . The heart size is normal. No pericardial effusion. There is diffuse hepatic steatosis. The gallblad dallin, spleen, pancreas, adrenal glands, and kidneys are normal. There is no urolithiasis. There are no dilated loops of bowel. The appendix is normal. There are no pathologically enlarged lymph nodes. Th ere is no free intraperitoneal fluid. There are bilateral inguinal hernias containing fat. There is m ild thoracic spondylosis and moderate lumbar spondylosis. There is mild chronic anterior wedging of m ultiple thoracic vertebral bodies. IMPRESSION: 1. Diffuse hepatic steatosis. 2. Bilateral inguinal hernias containing fat. Reviewed, dictated and finalized at location A. [employer]
--- OUTSIDE RECORDS SUMMARY | 2024-10-18 13:47 | XMS_ITS | Clinical Summary ---
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 HMO/PPO Address: [address] [address] [place] [address] Care Teams Production Line Mechanic Relationship Specialty Start Date End Date Chelle Dennis PA [address] [facility] [address] [place] [address] PCP - General Physician Clinic Specialist 09/10/23
--- OUTSIDE RECORDS SUMMARY | 2024-10-18 13:47 | XMS_ITS | Referral Summary ---
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
== END 2024-10-18 12:07 | disposition home or self-care (01) ==
PROVIDERS: PCP Family Medicine; Visit Provider Family Medicine
DX: K40.20 Bilateral inguinal hernia, without obstruction or gangrene, not specified as recurrent (principal); K76.0 Fatty (change of) liver, not elsewhere classified
CPT/HCPCS: 74176

== ENCOUNTER 2024-12-25 09:55 | Outpatient (CLI) | payer OTHER, SELFPAY ==
--- NOTE | 2024-12-25 10:00 | ECG_ITS ---
Test Date: 2024-12-25 10:21:10 Measurements Intervals [place] Rate: 69 P: 18 [place]: 158 QRS: -1 QRSD: 106 T: 18 QT: 391 QTc: 421 Interpretive Statements SINUS RHYTHM INCOMPLETE RIGHT BUNDLE BRANCH BLOCK BORDERLINE ELECTROCARDIOGRAM No previous ECG available for comparison Electronically Signed On 12-25-2024 15:43:03 CDT by Houston Mendez M.D.
--- OUTSIDE RECORDS SUMMARY | 2024-12-25 10:49 | XMS_ITS | Referral Summary ---
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
--- OUTSIDE RECORDS SUMMARY | 2024-12-25 10:49 | XMS_ITS | Clinical Summary ---
Author Organization [facility] Address [address] [facility] [place] [address] Care Team Providers Care Safety Representative Name Role Phone Kael Hester MD Primary Care Provider [phone] Source Comments [facility],non-owned Affiliates and Associated Physician Practices is amultiple site organization consisting of ambulatory clinics and hospital sitesin [place], [place], [place] and [place]. This disclosure is being madepursuant to the Care Everywhere program and may not contain all information available regarding this patient. Last updated 18.[facility] Allergies No known active allergies Medications * Be aware that medications may not be up to date on this document. Alwaysverify current medications with the patient. LISINOPRIL PO Active benzonatate (TESSALON) 200 MG capsuleIndicatio ns:Viral upper respiratory tract infection Take 1 capsule by mouth 3 times daily as needed for Cough 30 capsule 01/11/2018 Active Family History Medical History Relation Name Comments CAD (Coronary Artery Disease) Father from [place] at age 45 Relation Name Status Comments Father Mother Alive Social History Tobacco Use Types Packs/Day Years Used Date Smoking Tobacco: Never Smokeless Tobacco: Never Sex and Gender Information Value Date Recorded Sex Assigned at Not on file Legal Sex Male 1:09 PM TAKER DOWN Gender Identity Not on file Sexual Orientation Not on file Last Filed Vital Signs Vital Sign Reading Time Taken Comments Blood Pressure 136/84 01/11/2018 12:41 PM CDT Pulse 78 01/11/2018 12:41 PM CDT Temperature 36.7 C (98.1 F) 01/11/2018 12:41 PM CDT Respiratory Rate 18 01/11/2018 12:41 PM CDT Oxygen Saturation 96% 01/11/2018 12:41 PM CDT Inhaled Oxygen Concentration - - Weight 152.4 kg (336 lb) 01/11/2018 12:41 PM CDT Height 193 cm (6' 4 ) 01/11/2018 12:41 PM CDT Body Mass Index 40.9 01/11/2018 12:41 PM CDT Plan of Treatment Health Maintenance Due Date Last Done Comments COLOGUARD (AGES 45-75) - COL ON CA SCREENING 1979 COLON MONITORING 1979 COLONOSCOPY - COLON CA SCREENING 1979 CT COLONOGRAPHY - COLON CA SCREENING 1979 Colorectal Cancer Screening 1979 FIT - COLON CA SCREENING 1979 FLEX SIG - COLON CA SCREENING 1979 LIPID TESTING 1979 HIV SCREENING 1994 HEPATITIS C SCREENING 06/04/1997 DTAP/TDAP/TD VACCINES (1 - Tdap) 1998 HEPATITIS B VACCINE (1 of 3 - 19+ 3-dose series) 1998 COVID-19 VACCINE (1 - 2023-2 5 season) 2024 DEPRESSION SCREENING 08/23/2024 INFLUENZA VACCINE (Season Ended) 2025 ZOSTER VACCINE (1 of 2) 2029 HIB VACCINE Aged Out No longer eligi ble based on patient's age to complete this topic HPV VACCINE Aged Out No longer eligi ble based on patient's age to complete this topic MENINGOCOCCAL (Group B) VACC INE SHARED DECISION-MAKING Aged Out No longer eligibl e based on patient's age to complete this topic MENINGOCOCCAL GROUPS A/C/Y/W VACCINE Aged Out No longer eligible b ased on patient's age to complete this topic PNEUMOCOCCAL VACCINE Aged Out No long er eligible based on patient's age to complete this topic Insurance [facility] Address: [facility] [id number] [place] [place] [id number] Care Teams Safety Representative Relationship Specialty Start Date End Date Kael Hester MD [address] [place] [address] PCP - General Family Medicine 09/16/17
--- OUTSIDE RECORDS SUMMARY | 2024-12-25 10:49 | XMS_ITS | Clinical Summary ---
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
== END 2024-12-25 09:56 | disposition home or self-care (01) ==
LOC: ANHSURGERY 09:59
PROVIDERS: PCP Family Medicine; Visit Provider Surgery
DX: Z01.818 Encounter for other preprocedural examination (principal); I10 Essential (primary) hypertension; K40.91 Unilateral inguinal hernia, without obstruction or gangrene, recurrent
CPT/HCPCS: 36415; 86850; 86900; 86901; 93005

== ENCOUNTER 2025-01-03 00:19 | Day surgery (SDC) | payer OTHER, SELFPAY ==
[2024-12-20 13:02] VITALS: BMI 48.8
--- NOTE | 2024-12-20 13:29 | PC.NURSE ---
Report to the Outpatient Waiting Room, entrance under the green pavilion located off [facility], at time 6:30AM on date 01/03/2025. Planned Procedure Time:8:30AM. Time changes happen often and if your time is changed the preop area will call you the afternoon before. - You and your visitor will be asked to self-screen and do not enter if you have any COVID symptoms. Please call surgeon if you need to reschedule. - A mask is optional within the hospital at this time. Patients may have clear liquids (water, carbonated beverages, clear teas, apple juice) until 3 hours prior to surgery with a maximum of 20 ounces. - No food from midnight until time of surgery and no smoking, or chewing tobacco (or any form of nicotine). No chewing gum, candy or mints. Take only the following medications with a SIP of water on the morning of surgery: Hyoscyamine as needed DO NOT STOP ANY OF YOUR OTHER PRESCRIPTION MEDICATIONS PRIOR TO SURGERY EXCEPT THE FOLLOWING Hold all vitamins and supplements for 3 days per anesthesiologist- 12/31/24 Medications to discontinue per physician- Iban, clarify taking naproxen with Dr. Batres Date to take last dose- 12/15/24 Please no make-up, nail russian, hairspray, perfume, deodorant, or body powder the day of surgery. No jewelry (including any body piercings) or valuables the day of surgery, leave them at home. Please take a shower or bath the night before, or the morning of, surgery with an antibacterial soap. Wear comfortable, loose fitting clothing. Children are encouraged to wear pajamas. - Jewelry must be removed prior to entering the operating room. Rings and piercings that are not removed may be cut off. - The hospital will not accept responsibility for valuables. - Please leave all valuables, including medications, at home the day of surgery. If you are going home after surgery, a licensed personal driver must drive you home. - NO public transportation without another adult if you receive anesthesia. - We recommend that an adult stay with you for 24 hours following discharge. - We also recommend that you do not drive, make important decision, drink alcoholic beverages, or take any drugs that were not prescribed by your health care provider for at least 24 hours after your discharge time. Follow any additional instructions given to you from your surgeon. Telephone instructions given to patient and asked if any additional questions and then verbalized understanding. Patient advised to call surgeon office or pre surgery nurse liaison [phone] if any additional questions.
--- NOTE | 2025-01-02 10:10 | P.SS_ITS ---
Same Day Admit/Disch: HPI History of Present Illness Chief complaint: recurrent rt ing hernia, left ing hernia Narrative: Buster Lee is a 44 year old male who had bilateral inguinal hernia repairs as an . He developed a recurrent right inguinal hernia and had this repaired laparoscopically with 3DMax mesh in 2013. More recently he has developed bilateral lower abdominal pain that radiates down into his groin and is worse with activity. He had a CT scan of the abdomen and pelvis which showed bilat eral fat containing inguinal hernias. Patient was seen in the office and found to have bilateral inguinal hernias on examination as well. He is taken to surgery now for robotic laparoscopic repair of recurrent right inguinal hernia and repair of left inguinal hernia, both with mesh. [facility] Past Medical History Medical History Migraine headache Congenital stenosis of lumbar spine Gastroesophageal reflux disease History of diverticulitis Anxiety Essential hypertension Obstructive sleep apnea on CPAP Surgical History Surgical History History of right inguinal hernia repair Family History Family History Father , Age 45 Acute myocardial infarction, Onset Age: 45 Social History Social History Social History: Surrogate decision maker: Hali Lee, spouse. Code status: Full code. Smoking status: Never smoker Second hand tobacco smoke exposure: No Alcohol intake: never Substance use: never Substance use type: does not use Living arrangements: with family Additional living arrangements comments: The patient lives with his and their [address] [facility] in [place]. 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 Gender identity (if verbalized by the patient): Male Sexual Orientation (if Verbalized by the Patient): Straight or Heterosexual Spiritual care concerns: No Same Day Admit/Disch: Med Pre-admit Medications Home Medications Medication Instructions Recorded Confirmed Type cyanocobalamin (vitamin B-12) 1,000 mcg PO DAILY #90 tabs 07/24/24 01/03/25 Rx 1,000 mcg tablet nortriptyline 25 mg capsule 25 mg PO QHS #90 caps 08/31/24 01/03/25 Rx lisinopril 40 mg tablet See Rx Instructions .Route 10/16/24 01/03/25 Rx .COMPLEX #90 tabs cholecalciferol (vitamin D3) 125 125 mcg PO DAILY #90 caps 10/19/24 01/03/25 Rx mcg (5,000 unit) capsule hyoscyamine sulfate 0.125 mg tablet 0.125 mg PO QID PRN abdominal pain 10/26/24 12/20/24 Rx #30 tabs hydrochlorothiazide 12.5 mg tablet See Rx Instructions .Route 10/30/24 01/03/25 Rx .COMPLEX #90 tabs omeprazole 40 mg capsule,delayed 40 mg PO DAILY #90 caps 11/24/24 01/03/25 Rx release naproxen 500 mg tablet 500 mg PO BID PRN pain #30 tabs 12/18/24 12/20/24 Rx semaglutide (weight loss) 0.25 0.25 mg (0.5 mL) subcut WEEKLY #2 01/01/25 01/03/25 Rx mg/0.5 mL subcutaneous pen injector mL ketorolac 10 mg tablet 10 mg PO Q6H 4 days #16 tabs 01/03/25 Rx oxycodone-acetaminophen 5 mg-325 0.5 - 1 tablet PO Q4H PRN pain #10 01/03/25 Rx mg tablet (Percocet) tabs Review of Systems Review of Systems All systems reviewed & are unremarkable except as noted in HPI and below (HPI and those items noted below) Constitutional Constitutional: Denies chills and Denies fever(s) Comments: Morbid obesity with BMI 49 Cardiovascular Cardiovascular: Denies chest pain, Denies diaphoresis, Denies dyspnea and Denies paroxysmal nocturnal dyspnea Comments: Essential hypertension Respiratory Respiratory: Denies chest congestion, Denies cough and Denies dyspnea Comments: Has obstructive sleep apnea and uses CPAP Gastrointestinal Gastrointestinal: Reports as per HPI Genitourinary Genitourinary: Reports as per HPI Integumentary/Breasts Skin/Breast: Denies lesions and Denies rash Exam Const: General: comfortable, no acute distress, alert and awake Nutritional Appearance: obese morbidly obese Orientation/consciousness: patient oriented x3 HENMT: Head: normocephalic and atraumatic Mouth: Yes Normal oral and palatal mucosa present Eyes: Conjunctivae: conjunctivae normal Pupils: Equal, round and reactive pupils present EOM: EOMs intact bilaterally Neck: Neck: normal visual inspection, no lymphadenopathy and nontender Resp: Effort & Inspection: normal respiratory effort Auscultation: clear to auscultation bilaterally Cardio: Rate: regular rate Rhythm: regular rhythm Heart sounds: no gallops, no murmurs and no rubs GI: Inspection: non-distended, obesity and no visible herniation GI Palp: Yes Soft to palpation, No Tenderness to palpation present (GI), No Hepatomegaly present and No Splenomegaly present : Male General Exam: Yes hernia (Bilateral reducible inguinal hernias, both pulse with cough) Penis: Yes normal penis Scrotum: scrotum normal Teste s: Testes normal Skin: Lesions: no lesions Rashes: no rashes Neuro: General: no focal motor deficits and CN's II-XI intact bilaterally Cranial nerves: Yes Equal, round and reactive pupils present, Yes Bilaterally intact EOM present, Yes facial symmetry and Yes Midline tongue present Speech: normal speech Motor exam (neuro): 5/5 motor strength present throughout and Motor abnormalities not present Extrem: General: no clubbing, cyanosis or edema and edema Psych: Affect: normal affect Thought process: Normal thought process present Insight: Good insight present (Psych) DS: Summary Time Spent with Patient Time attestation: Total time spent providing and/or coordinating discharge services: DS: Admitting Diagnosis Discharge Date 01/03/2025 Admitting Diagnosis * Recurrent right inguinal hernia * Left inguinal hernia-plan to repair both hernias using robotic laparoscopic technique. The procedure, risks, benefits, alternatives have been discussed. All questions were answered. He understands and agrees to go ahead. * Morbid obesity with BMI 49 * Obstructive sleep apnea on CPAP * Essential hypertension * GERD DS: Discharge Diagnosis Discharge Diagnosis (1) Recurrent right inguinal hernia: Code(s): K40.91 - Unilateral inguinal hernia, without obstruction or gangrene, recurrent Status: Acute Assessment and Plan: Both hernias repaired with robotic laparoscopic technique using mesh 01/03/[address] Batres (2) Left inguinal hernia: Code(s): K40.90 - Unilateral inguinal hernia, without obstruction or gangrene, not specified as recurrent Status: Acute Discharge Plan Discharge Patient Disposition: Home Discharge Instructions: 1. May shower the day after surgery over incisions. 2. Call office for: -Wound increasingly painful or bleeding -Vomiting -Fever of greater than 101 degrees 3. Were scrotal support at all times except when sleeping or showering for 1 week. 4. If no bowel movement for three days, take 1 oz. (30 ml) Milk of Magnesia, if no results, take Fleets enema. 5. No heavy lifting > 15-20 pounds for 2 weeks. 6. No driving for 3 days or while taking narcotic pain medications. 7. Up walking 10-30 minutes three times per day. 8. Resume previous home medications. 9. Follow-up 10-14 days in office for wound check or as previously scheduled. 10. Oral pain medications prescription to be sent home with patient. 11. NUTRITION: Start out by drinking fluids and increase your diet as tolerated. If you experience nausea, try dry toast, crackers, and 7-UP. If nausea or vomiting persists, contact your surgeon’s office. Patient Language: Serbian Stand Alone Forms: General Discharge Instructions Follow-up/Referrals: Waqar Batres MD [Physician] - Keep Reg. Scheduled Appt. Discharge Medications: New ketorolac 10 mg tablet 10 mg PO Q6H 4 Days Qty: 16 0RF oxycodone-acetaminophen [Percocet] 5-325 mg tablet 0.5 - 1 tablet PO Q4H PRN (Reason: pain) Qty: 10 0RF Continued cyanocobalamin (vitamin B-12) 1,000 mcg tablet 1,000 mcg PO DAILY Qty: 90 1RF Patient Comments: takes tablet daily in AM nortriptyline 25 mg capsule 25 mg PO QHS Qty: 90 2RF lisinopril 40 mg tablet See Rx Instructions .ROUTE .COMPLEX Qty: 90 0RF Dose Instruction: Take 1 tablet by mouth once daily Patient Comments: takes 1 tablet daily in AM Rx Instructions: Take 1 tablet by mouth once daily cholecalciferol (vitamin D3) 125 mcg (5,000 unit) capsule 125 mcg PO DAILY Qty: 90 1RF Patient Comments: patient takes capsule daily in AM hyoscyamine sulfate 0.125 mg tablet 0.125 mg PO QID PRN (Reason: abdominal pain) Qty: 30 0RF hydrochlorothiazide 12.5 mg tablet See Rx Instructions .ROUTE .COMPLEX Qty: 90 3RF Dose Instruction: TAKE 1 TABLET BY MOUTH ONCE DAILY IN THE MORNING Rx Instructions: TAKE 1 TABLET BY MOUTH ONCE DAILY IN THE MORNING omeprazole 40 mg capsule,delayed release(DR/EC) 40 mg PO DAILY Qty: 90 3RF semaglutide (weight loss) 0.25 mg/0.5 mL pen injector 0.25 mg subcut WEEKLY Qty: 2 1RF Rx Instructions: administer 4 weeks Held naproxen 500 mg tablet 500 mg PO BID PRN (Reason: pain) Qty: 30 0RF Hold Instructions: Resume on 01/11/25. Hold while taking Ketoralac
--- NOTE | 2025-01-02 15:28 | P.PNAN_ITS ---
Anes - Initial Pre Proc Eval Procedure: Operation Date: 01/03/25 08:30 Proposed Procedures p Robotic Repair Recurrent Right Inguinal Hernia with Mesh, Robotic Repair Left Inguinal Hernia with Mesh - Waqar Batres MD Date/Time: 01/02/25 15:28 Surgeon: Waqar Batres MD Pre Op Diagnosis: recurrent rt ing hernia, left ing hernia Patient Data Age: 44 Gender: M Height: 1.83 m Weight: 163.3 kg Allergies Allergy/AdvReac Type Severity Reaction Status Date / Time No Known Allergies Allergy Verified 12/20/24 12:58 Home Medications Medication Instructions Recorded Confirmed Type cyanocobalamin (vitamin B-12) 1,000 mcg PO DAILY #90 tabs 07/24/24 12/20/24 Rx 1,000 mcg tablet nortriptyline 25 mg capsule 25 mg PO QHS #90 caps 08/31/24 12/20/24 Rx lisinopril 40 mg tablet See Rx Instructions .Route 10/16/24 12/20/24 Rx .COMPLEX #90 tabs cholecalciferol (vitamin D3) 125 125 mcg PO DAILY #90 caps 10/19/24 12/20/24 Rx mcg (5,000 unit) capsule hyoscyamine sulfate 0.125 mg tablet 0.125 mg PO QID PRN abdominal pain 10/26/24 12/20/24 Rx #30 tabs hydrochlorothiazide 12.5 mg tablet See Rx Instructions .Route 10/30/24 12/20/24 Rx .COMPLEX #90 tabs omeprazole 40 mg capsule,delayed 40 mg PO DAILY #90 caps 11/24/24 12/20/24 Rx release naproxen 500 mg tablet 500 mg PO BID PRN pain #30 tabs 12/18/24 12/20/24 Rx semaglutide (weight loss) 0.25 0.25 mg (0.5 mL) subcut WEEKLY #2 01/01/25 Rx mg/0.5 mL subcutaneous pen injector mL Results Review: All pre-operative results and documents have been reviewed as part of the pre- operative evaluation. [facility] Past Medical History Medical History Migraine headache Congenital stenosis of lumbar spine Gastroesophageal reflux disease History of diverticulitis Anxiety Essential hypertension Obstructive sleep apnea on CPAP Surgical History Surgical History History of right inguinal hernia repair Family History Family History Father , Age 45 Acute myocardial infarction, Onset Age: 45 Social History Social History Social History: Surrogate decision maker: Hali Lee, spouse. Code status: Full code. Smoking status: Never smoker Second hand tobacco smoke exposure: No Alcohol intake: never Substance use: never Substance use type: does not use Living arrangements: with family Additional living arrangements comments: The patient lives with his and their 2 [address] in [place]. 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 Gender identity (if verbalized by the patient): Male Sexual Orientation (if Verbalized by the Patient): Straight or Heterosexual Spiritual care concerns: No Anes - Eval Final PreProcedure Day of Procedure 01/02/25 15:28 Results Review: All pre-operative results and documents have been reviewed as part of the pre- operative evaluation. Informed Consent: The patient's anesthetic plan and its attendant risks and benefits were discussed with the patient/family/POA. Questions were solicited and answers provided to the satisfaction of the patient/family/POA.
[2025-01-03] VITALS (9 sets, daily range): BP systolic 120–158; BP diastolic 69–95; PULSE 70–83; RESP 12–18; TEMP 36.1–36.3; O2SAT 94–100
--- OUTSIDE RECORDS SUMMARY | 2025-01-03 00:22 | XMS_ITS | Referral Summary ---
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
--- OUTSIDE RECORDS SUMMARY | 2025-01-03 00:22 | XMS_ITS | Clinical Summary ---
Author Organization [facility] Main 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
--- OUTSIDE RECORDS SUMMARY | 2025-01-03 00:22 | XMS_ITS | Clinical Summary ---
Author Organization [facility] Address [address] [place] [address] Care Team Providers Care On Site Soil Evaluator Name Role Phone Kael Hester MD Primary Care Provider [phone] Source Comments [facility],non-owned Affiliates and Associated Physician Practices is amultiple site organization consisting of ambulatory clinics and hospital sitesin [place], [place], [place] and [place]. This disclosure is being madepursuant to the Care Everywhere program and may not contain all information available regarding this patient. 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
--- NOTE | 2025-01-03 07:02 | WPDHPUPDATE1 ---
History and Physical Update Update Date/Time: 01/03/25 07:02 History and Physical has been reviewed, including an updated exam of the patient. There are NO changes in the patient's condition. Risks, benefits, and alternatives have been discussed and questions answered. Patient agrees to proceed with procedure.
[2025-01-03] MEDS: LACTATED RINGERS 1,000 ML 30 ML IV CONT ×2 (07:30→13:52)
[2025-01-03] MEDS: KETOROLAC 15 MG/ML VIAL (*BKC) IV PUSH (07:35)
[2025-01-03] MEDS: ACETAMINOPHEN 500 MG TABLET 1000 MG PO (07:35)
--- NOTE | 2025-01-03 08:13 | P.PNAN_ITS ---
Anes - Initial Pre Proc Eval Procedure: Operation Date: 01/03/25 08:30 Proposed Procedures p Robotic Repair Recurrent Right Inguinal Hernia with Mesh, Robotic Repair Left Inguinal Hernia with Mesh - Waqar Batres MD Date/Time: 01/03/25 08:13 Surgeon: Waqar Batres MD Pre Op Diagnosis: recurrent rt ing hernia, left ing hernia Patient Data Age: 44 Gender: M Height: 1.83 m Weight: 163.5 kg Last Vital Signs Temp 36.3 C L 01/03/25 06:29 Pulse 70 01/03/25 06:29 Resp 18 01/03/25 06:29 BP 141/78 H 01/03/25 06:29 Pulse Ox 95 01/03/25 06:29 O2 Del Method Room Air 01/03/25 06:29 Allergies Allergy/AdvReac Type Severity Reaction Status Date / Time No Known Allergies Allergy Verified 01/03/25 07:09 Home Medications Medication Instructions Recorded Confirmed Type cyanocobalamin (vitamin B-12) 1,000 mcg PO DAILY #90 tabs 07/24/24 01/03/25 Rx 1,000 mcg tablet nortriptyline 25 mg capsule 25 mg PO QHS #90 caps 08/31/24 01/03/25 Rx lisinopril 40 mg tablet See Rx Instructions .Route 10/16/24 01/03/25 Rx .COMPLEX #90 tabs cholecalciferol (vitamin D3) 125 125 mcg PO DAILY #90 caps 10/19/24 01/03/25 Rx mcg (5,000 unit) capsule hyoscyamine sulfate 0.125 mg tablet 0.125 mg PO QID PRN abdominal pain 10/26/24 12/20/24 Rx #30 tabs hydrochlorothiazide 12.5 mg tablet See Rx Instructions .Route 10/30/24 01/03/25 Rx .COMPLEX #90 tabs omeprazole 40 mg capsule,delayed 40 mg PO DAILY #90 caps 11/24/24 01/03/25 Rx release naproxen 500 mg tablet 500 mg PO BID PRN pain #30 tabs 12/18/24 12/20/24 Rx semaglutide (weight loss) 0.25 0.25 mg (0.5 mL) subcut WEEKLY #2 01/01/25 01/03/25 Rx mg/0.5 mL subcutaneous pen injector mL Patient hx anesthesia problems: none Family hx anesthesia problems: none Results Review: All pre-operative results and documents have been reviewed as part of the pre- operative evaluation. [facility] Past Medical History Medical History Migraine headache Congenital stenosis of lumbar spine Gastroesophageal reflux disease History of diverticulitis Anxiety Essential hypertension Obstructive sleep apnea on CPAP Surgical History Surgical History History of right inguinal hernia repair Family History Family History Father , Age 45 Acute myocardial infarction, Onset Age: 45 Social History Social History Social History: Surrogate decision maker: Hali Lee, spouse. Code status: Full code. Smoking status: Never smoker Second hand tobacco smoke exposure: No Alcohol intake: never Substance use: never Substance use type: does not use Living arrangements: with family Additional living arrangements comments: The patient lives with his and their 2 [facility] in [place]. 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 Gender identity (if verbalized by the patient): Male Sexual Orientation (if Verbalized by the Patient): Straight or Heterosexual Spiritual care concerns: No Anes - Eval Final PreProcedure Day of Procedure 01/03/25 08:13 Patient weight: morbidly obese Heart: regular rate and rhythm Lungs: clear to auscultation Airway: Mallampati scale class II Neurological: alert and oriented Last oral intake: >/= 8 hours ASA classification: III Emergent: no Anesthetic plan: proceed Anesthesia type and monitoring: general ETT and standard monitoring Results Review: All pre-operative results and documents have been reviewed as part of the pre- operative evaluation. Informed Consent: The patient's anesthetic plan and its attendant risks and benefits were discussed with the patient/family/POA. Questions were solicited and answers provided to the satisfaction of the patient/family/POA.
[2025-01-03] MEDS: ceFAZolin 3 GM/D5W 100 ML 100 ML IVPB (08:40)
[2025-01-03] MEDS: BUPIVACAINE/EPINEPHRINE 0.5% 50 ML VIAL 30 ML INFILTRATE (09:25)
--- NOTE | 2025-01-03 14:08 | P.OP_ITS ---
Procedure Note - Detailed Date of Procedure 01/03/25 Pre-op Diagnosis recurrent rt ing hernia, left ing hernia Post-op Diagnosis Same (Left inguinal hernia was incarcerated) Procedure Performed Robotic laparoscopic repair recurrent right inguinal hernia with mesh, repair incarcerated left inguinal hernia with mesh Surgeon Waqar Batres MD Payroll And Benefits Analyst Lorena Yeager [facility] Anesthesia General and Local Indications Patient had been having lower abdominal midline pain that would radiate to his groin and testicles. Pain would be worse with activity. He had a CT scan which showed bilateral fat containing inguinal hernias. He has a history of a laparoscopic right inguinal hernia repair 11 years ago. Exam in the office showed reducible bilateral inguinal hernias. He is taken to surgery now for repair of his recurrent right inguinal hernia as well as repair of his left inguinal hernia. Findings Procedure was much more difficult than usual. Patient has a BMI of 49. The extreme obesity made both hernia repairs more bloody than usual and more difficult due to the excess fatty tissue causing difficulty with exposure and dissection. The surgery took nearly 4-1/2 hours which is nearly twice as long as usual. Blood loss was 30 cc which is over twice as much as usual. Patient had an indirect and direct inguinal hernia on the left side. The direct component was incarcerated. The right side showed a recurrent indirect hernia. The previously placed mesh appeared to have allowed a posterior recurrence. The mesh was densely adherent to the peritoneum and closure of the right side was extremely difficult as the mesh could not be removed without removing the peritoneum. Both repairs were performed with extra-large 3DMax mesh. At the conclusion of the surgery we had to use an Endo-Catch bag and to retrieve all the fatty tissue that had been dissected away from each inguinal area during repair. We also had to place an extra environmental emergencies assistant port for traction on the flaps and assistance with removing devitalized fat. Description of Procedure Patient was taken to surgery and induced into general anesthesia. The abdomen was prepped and draped. Trocars were placed in the usual fashion starting with an applied Medical 5 mm optical trocar in the left upper quadrant. Under direct visualization 2 robotic trocars were placed 1 near the midline and 1 in the right upper quadrant. The 5 mm trocar was then exchanged for another 8 mm robotic trocar. I also placed a 10 11 port in the left mid abdomen as a bedside environmental emergencies assistant port. Once the trocars were in position, patient was placed in 18° Trendelenburg. The robot was brought into the field. The camera was docked and targeted. The instrument arms were docked and the instruments were position. Surgeon went to the robotic console. I started on the left side as it had not been operated on previously. An anterior peritoneal flap was created starting laterally and proceeding medially to the median umbilical ligament and anterior to the inguinal canal structures. I then developed the flap from anterior to posterior. As mentioned above, there was a large amount of fatty tissue during the entire dissection. Some of this was removed from the inguinal canal but it made visualization and exposure more difficult. Additionally the robotic instruments would frequently have fatty tissue in twice in them after using them to retract. The flap was developed. Medially we found the posterior rectus muscle on the right side and continued dissection down to Chandler's ligament. It was obvious by this point that the left-sided hernia was a direct hernia and fatty tissue was incarcerated in the hernia. After exposing Chandler's ligament, I dissected towards the patient's right and found the medial edge of the previously placed mesh. I dissected in the midline and over to the medial edge of the right rectus muscle. I also the previously placed hernia mesh from Chandler's ligament and surrounding structures so that the new mesh could lay a cm beyond the pubis and midline. I then went back to the incarcerated direct hernia and place traction on the herniated contents while using cautery and ge ntle dissection to slowly reduce hernia. There was very large amount of fatty tissue that was incarcerated. There was so much tissue that it was obscuring my ability to expose and identify pertinent structures. I dissected much of this fatty tissue, over half, away and removed it from the inguinal canal. It was later removed after I had divided it in smaller pieces by the reference library assistant. Dividing this herniated tissue caused bleeding despite my best efforts to avoid this. Cautery and bipolar cautery were used to control the oozing of blood. Once the direct hernia was reduced it was obvious that this communicated with the indirect hernia. I next went to the internal ring and place traction on the herniated tissue there. This was mostly fatty tissue as well. Gentle traction as well as cautery of the transversalis fascia allowed slow reduction. This was also a large amount of fatty tissue. It was difficult to separate this cleanly from the cord structures and there was some venous bleeding associated with this dissection. Hemostasis was then achieved here as well. I went back to Chandler's ligament and continued that dissection until the lens molding equipment operator plug was seen and we had adequate lateral dissection and posterior dissection from Chandler's ligament for mesh placement. There was still quite a bit of fatty tissue lying on the posterior aspect of the dissection. This was dissected free and as much as possible was taken out of the inguinal canal. This was also removed by the 1st environmental emergencies assistant using the environmental emergencies assistant bedside port. I then placed an extra-large piece of right-sided mid 3D max mesh over the inguinal canal structures. It was positioned appropriately and lay in good position. I sutured the mesh to Chandler's ligament with a 3-0 Vicryl suture. I also used 3-0 Vicryl suture to secure the mesh to the anterior abdominal wall on the medial and lateral aspect. At this point all looked good. There was much more blood staining than usual but no active bleeding. I then closed the peritoneal defect with running 3 0 V lock suture. The Vicryl and V lock needles were removed. I then turned my attention to the right side. An incision was made from lateral to medial anteriorly to the inguinal canal structures to create a peritoneal flap as had been done on the left side. The mesh attached to the peritoneum required dissection off of the rest of the inguinal canal structures. I left the mesh attached to the peritoneum since if I removed it, there would be little if any peritoneum left closed. This was tedious and somewhat bloody. Overall it went quite well. I was careful to avoid any spermatic cord vasculature or vas deferens. Eventually the mesh was dissected free from the inguinal canal structures and then more medially, I completed dissecting the mesh from Chandler ligament so that it was entirely free from the inguinal canal structures. Some of the looser pieces of mesh were then removed. What was left behind was well incorporated to peritoneum. With the mesh removed, I began reducing the indirect hernia. Traction was placed on the hernia and the transversalis fascia was divided anteriorly. Slowly the reduction of the hernia sac and a lot of fatty tissue was carried out. Care was taken to avoid any injury to the spermatic cord structures. Eventually the hernia was completely reduced in was freed from the cord structures. It was a large amount of fatty tissue associated with the hernia and this was dissected free for the most part, and discarded. Dissection was then returned to Chandler's ligament. I dissected laterally until the obturator plug was seen. I looked for any other hernias but saw none. I then used an extra-large right-sided 17 x 12 cm mid 3DMax mesh. This was positioned over the inguinal canal structures and lay very nicely against the abdominal wall. I used 3-0 Vicryl and sutured the mesh to Chandler's ligament. Two additional sutures were placed to secure the mesh anteriorly on both the lateral and medial sides. The 2 meshes were not sutured together. They did overlap in the midline. At this point, we introduced an Endo-Catch bag and the hernia sacs and fat that had been removed were placed in the bag as well as any other residual fatty tissue that had not been removed previously. This worked well in the Endo-Catch bag was able to be removed through the environmental emergencies assistant port. I then closed the peritoneal opening on the right side using 2 0 V lock. There were adhesions and quite a bit of tension with the incorporated mesh on the lower aspect of the flap. I ended up using 2 of the V lock suture. I started 1st from the lateral side closing the flap and then used a 2nd V lock and started from the medial side and worked laterally. Eventually the flap was completely closed with no gaps. The remaining suture needles were removed. The area was reviewed in both repairs appeared to have the peritoneum closed adequately with no evidence of bleeding or other problems. We then removed the instruments and undocked the robot. CO2 was evacuated from the abdominal cavity. The robotic and the environmental emergencies assistant trocars were removed. All skin wounds were closed with subcuticular 4-0 Monocryl skin suture. The wounds were dressed with Exofin surgical adhesive. The patient was awakened and taken to recovery in good condition. Sponge and needle counts were correct x2. Implants Right-sided and left-sided extra-large, 17 x 12 cm, mid 3DMax mesh. Estimated Blood Loss -30 Drains No Packing No Pathology Yes (Residual mesh for gross only) Complications None Condition Stable Disposition PACU [facility] Billing Surgery - Charge Forward: Surgery Billing (Robotic laparoscopic repair recurrent right inguinal hernia with mesh, repair incarcerated left inguinal hernia with mesh; add 22 modifier for increased difficulty)
[2025-01-03] MEDS: oxyCODONE HCL (*CRX) 5 MG TAB IR PO (15:32)
--- NOTE | 2025-01-03 15:56 | SUR.PHASEII ---
PATIENT PUT ON SCROTAL SUPPORT AND IS NOW DRESSING. AWAITING DISCHARGE ORDERS FROM DR. RANGEL. PATIENT AWARE.
--- NOTE | 2025-01-03 16:35 | SUR.PHASEII ---
DR. RANGEL IN TO SEE PATIENT.
== END 2025-01-03 16:53 | disposition home or self-care (01) ==
PROVIDERS: PCP Family Medicine; Visit Provider Surgery
PROC: 8E0Y4CZ Robotic Assisted Procedure of Lower Extremity, Percutaneous Endoscopic Approach (ICD-10-PCS; CPT 49650; principal; 2025-01-03 08:30)
DX: K40.91 Unilateral inguinal hernia, without obstruction or gangrene, recurrent (principal); K40.30 Unilateral inguinal hernia, with obstruction, without gangrene, not specified as recurrent; E66.01 Morbid (severe) obesity due to excess calories; Z68.42 Body mass index [BMI] 45.0-49.9, adult
CPT/HCPCS: 49651; 49650; S2900; A9270; C1781; J0690; J1100; J1885; J2003; J2250; J2405; J2704; J3010; J7030; J7120